=== PATIENT | female | born 1940 | race Caucasian/White ===

== ENCOUNTER 2016-08-01 12:35 | Inpatient (IN) | payer OTHER, MEDICARE ==
[~2016-08-01] VITALS: Ht 180.3 cm; Wt 84.5 kg
[~2016-08-01 12:35] MED LIST: ANASTROZOLE1 MG PO; APIX5T PO; AUGMENTIN 875875 MG PO; DEXAMETHASONE4 MG PO; FLEXERIL10 MG PO; HYDROCODONE BIT1 T22 PO; HYDROMORPHONE HC2 MG PO; LIDODERM 5% PAT1 PAT TOP; LISINOPRIL AND1 TAB PO; NAPROSYN375 MG PO; PROTONIX 40MG T40 MG PO; Robitussin Dm PO; SIMVASTATIN10 MG PO; TAMOXIFEN CITRA10 MG PO; TOPROL XL 50MG50 MG PO; TYLENOL #31 TAB PO
--- NOTE | 2016-08-01 12:53 | NUR ---
76 Y/O FEMALE [facility] FOR EVAL OF SOB. PT ARRIVES ALERT AND ORIENTED X 4, SPEAKING CLEARLY WITH NO DEFICITS NOTED. PT STATES SHE HAS BEEN FEELING SOB FOR WEEKS, STOPPED LASIX A FEW WEEKS AGO AND HAS NOT BEEM FEELING WELL SINCE. PT APPEARS WINDED WITH SPEECH. PLACED ON 2L FOR COMFORT, SAT 94% ON 2L. DENIES PAIN. STATES SHE HAS NOT BEEN EATING WELL LATELY AND DOES NOT HAVE AN APPETITE. DENIES COUGH. RESTRICTED BAND PLACED TO R ARM. PT HAS MANY CONCERNS REGARDING INSURANCE AND BILLING. QUESTIONS ANSWERED AND PT INFORMED REGISTRATION WILL ALSO BE IN. PT PREFERRING TO SPEAK TO MD PRIOR TO WORK UP
--- NOTE | 2016-08-01 13:04 | NUR ---
PT EVALUATED BY DR WAGNER AT THIS TIME.
--- NOTE | 2016-08-01 13:30 | NUR ---
PT PROVIDED WITH WARM BLANKETS PER ORDER
[2016-08-01 13:53] LABS: ABSOLUTE BASOPHIL COUNT 0 /CUMM (0.0-0.2); ABSOLUTE EOSINOPHIL COUNT 0.1 /CUMM (0.0-0.7); ABSOLUTE GRANULOCYTE CT 4.3 /CUMM (1.4-6.5); ABSOLUTE LYMPH COUNT 0.6 /CUMM (1.2-3.4); ABSOLUTE MONOCYTE COUNT 0.4 /CUMM (0.10-0.60); BASOPHIL % 0.1 % (0.0-2.0); EOSINOPHIL % 1.1 % (0-5); HEMATOCRIT 28.5 % (37-47); MEAN CORPUSCULAR HGB CONC 31.2 G/DL (33.0-37.0); MEAN CORPUSCULAR VOLUME 73.6 FL (81.0-99.0); MEAN PLATELET VOLUME 8.1 FL (7.4-10.4); PLATELET COUNT 321 /CUMM (130-400); RED BLOOD CELL CT 3.88 /CUMM (4.20-5.40); WHITE BLOOD CELL COUNT 5.5 /CUMM (4.8-10.8)
--- NOTE | 2016-08-01 14:01 | ED DYSPNEA/ASTHMA COMPLAINT ---
History of Present Illness General Chief Complaint: Dyspnea (COPD, CHF, Other) Stated Complaint: SOB Source: patient, old records, EMS Exam Limitations: no limitations Vital Signs & Intake/Output Vital Signs & Intake/Output Vital Signs Date Time Temp Pulse Resp B/P Pulse O2 O2 Flow FiO2 Ox Delivery Rate 08/01 1448 72 18 162/81 98 Nasal 2.0L Cannula 08/01 1252 90 Room Air 08/01 1241 96.9 74 20 133/59 94 Nasal 2.0L Cannula Allergies Coded Allergies: NO KNOWN ALLERGIES (08/09/15) Reconcile Medications Apixaban (Eliquis) 5 MG TAB 1 TAB PO SEE ADMIN CRITERIA BLOOD THINNER TAKE 2 TAB TWICE DAILY FOR 5 DAYS THAN 1 TAB TWICE DAILY CYCLOBENZAPRINE HCL (Flexeril) 10 MG TAB 1 TAB PO TID MUSCLE RELAXOR Dexamethasone 4 MG TAB 1 TAB PO Q6 LYTIC BONE LESIONS HYDROCODONE/ACETAMINOPHEN (Hydrocodon-Acetaminophen 5-300) 1 TAB TAB 1 TAB PO BID PRN PAIN (Reported) LISINOPRIL/HYDROCHLOROTHIAZIDE (Lisinopril-Hctz 10-12.5 MG Tab) 10 MG-12.5 MG TABLET 1 TAB PO DAILY HTN (Reported) Metoprolol Succ XL (Toprol Xl 50MG Tab) 50 MG TAB 50 MG PO DAILY A-FIB Pantoprazole Sodium (Protonix) 40 MG TAB 40 MG PO DAILY ACID REFLUX Simvastatin (Zocor) 10 MG TABLET 1 TAB PO QPM CHOLESTEROL (Reported) Tamoxifen Citrate 10 MG TAB 1 TAB PO DAILY LYTIC BOME LESIONS Core Measure Meds Pre-Hospital Eliquis Triage Note: 76 Y/O FEMALE BIBA FROM [facility] FOR EVAL OF SOB. PT ARRIVES ALERT AND ORIENTED X 4, SPEAKING CLEARLY WITH NO DEFICITS NOTED. PT STATES SHE HAS BEEN FEELING SOB FOR WEEKS, STOPPED LASIX A FEW WEEKS AGO AND HAS NOT BEEM FEELING WELL SINCE. PT APPEARS WINDED WITH SPEECH. PLACED ON 2L FOR COMFORT, SAT 94% ON 2L. DENIES PAIN. STATES SHE HAS NOT BEEN EATING WELL LATELY AND DOES NOT HAVE AN APPETITE. DENIES COUGH. RESTRICTED BAND PLACED TO R ARM. PT HAS MANY CONCERNS REGARDING INSURANCE AND BILLING. QUESTIONS ANSWERED AND PT INFORMED REGISTRATION WILL ALSO BE IN. PT PREFERRING TO SPEAK TO MD PRIOR TO WORK UP Triage Nurses Notes Reviewed? yes Onset: Last week Duration: week(s):, constant, continues in ED, getting worse Timing: recent history Severity: severe Activities at Onset: activity Prior Episodes/Possible Cause: unknown cause Modifying Factors: Improves With: immobilization, rest. Worsens With: movement. Associated Symptoms: weakness LMP (ages 10-50): post menopausal : No Patient currently breastfeeds: No HPI: 1 month prior to admission Lasix was discontinued for improved leg swelling. 2 weeks prior to admission patient reports increasing shortness of breath with exertion. She denies fever chills nausea vomiting diarrhea abdominal pain chest pain headache dysuria rash bleeding. Past History Travel History Traveled to [place] past 21 day No Medical History Any Pertinent Medical History? 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 No Review of Systems Review of Systems Constitutional: Reports: no symptoms. EENTM: Reports: no symptoms. Respiratory: Reports: see HPI, short of breath. Cardiovascular: Reports: no symptoms. GI: Reports: no symptoms. Genitourinary: Reports: no symptoms. Musculoskeletal: Reports: no symptoms. Skin: Reports: no symptoms. Neurological/Psychological: Reports: no symptoms. Hematologic/Endocrine: Reports: no symptoms. Immunologic/Allergic: Reports: no symptoms. All Other Systems: Reviewed and Negative Physical Exam Physical Exam General Appearance: well developed/nourished, alert, awake, anxious, mild distress, obese Head: atraumatic, normal appearance Eyes: Bilateral: PERRL, EOMI, pale conjunctivae. Ears, Nose, Throat: normal pharynx, normal ENT inspection, moist mucus membranes Neck: normal inspection, supple, full range of motion, no midline tenderness Respiratory: chest non-tender, no respiratory distress, decreased breath sounds (right), rales (right) Cardiovascular: normal peripheral pulses, irregularly irregular Peripheral Pulses: 4+ carotid (R), 4+ carotid (L) Gastrointestinal: normal bowel sounds, soft, non-tender, no organomegaly Extremities: normal inspection, normal capillary refill, normal range of motion, no edema Neurologic/Psych: no motor/sensory deficits, awake, alert, oriented x 3, normal mood/affect, 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 Yes Severe Sepsis Present: No Septic Shock Present: No Progress Differential Diagnosis: AMI, CHF, COPD, pneumonia Plan of Care: Orders Procedure Date/time Status Regular Diet 08/02 D Active Patient Data 08/01 1448 Active EKG 08/01 1417 Active OXYGEN SETUP (GEN) 08/01 1415 Active Saline Lock 08/01 1415 Active Admit to inpatient 08/01 1415 Active Vital Signs 08/01 1415 Active Activity/Ambulation 08/01 1415 Active Code Status 08/01 1415 Active TROPONIN LEVEL 08/01 1306 Complete COMPREHENSIVE METABOLIC PANEL 08/01 1306 Complete CBC WITHOUT DIFFERENTIAL 08/01 1306 Complete B-TYPE NATRIURETIC PEP (BNP) 08/01 1306 Complete Laboratory Tests 08/01/16 1319: Anion Gap 9, Estimated GFR > 60, BUN/Creatinine Ratio 25.0, Glucose 124 H, Calcium 9.9, Total Bilirubin 0.6, AST 21, ALT 25, Alkaline Phosphatase 82, Troponin I 0.01, [id number] Pept 3350 H, Total Protein 6.6, Albumin 3.6, Globulin 3.0, Albumin/Globulin Ratio 1.2, CBC w Diff NO MAN DIFF REQ, RBC 3.88 L, MCV 73.6 L, MCH 23.0 L, RDW 17.0 H, MPV 8.1, Gran % 79.0 H, Lymphocytes % 11.6 L, Monocytes % 8.2, Eosinophils % 1.1, Basophils % 0.1, Absolute Granulocytes 4.3, Absolute Lymphocytes 0.6 L, Absolute Monocytes 0.4, Absolute Eosinophils 0.1, Absolute Basophils 0, PUBS MCHC 31.2 L Diagnostic Imaging: Viewed by Me: Radiology Read. Discussed w/RAD: Radiology Read. CXR Impression: increased right effusion Initial ED EKG: normal axis, normal QRS complex, AFIB, no ST T wave changes Prior EKG: unchanged Rhythm Strip: atrial fibrillation Departure Departure Time of Disposition: 1453 Disposition: STILL A PATIENT Condition: Stable Clinical Impression Primary Impression: Pleural effusion Secondary Impressions: Anemia Qualifiers: Anemia type: unspecified type Qualified Code: D64.9 - Anemia, unspecified Atrial fibrillation with normal ventricular rate Dyspnea on exertion Referrals: Reema PIMENTEL MD (PCP/Family) Departure Forms: Customer Survey General Discharge Information Admission Note Spoke With: BARBARA JARAMILLO MD Documentation of Exam: Documentation of any treatments & extenuating circumstances including Concerns Regarding Discharge (functional status, medication knowledge or non-compliance, living conditions, etc.) that warrant an admission rather than observation: Supplemental oxygen IV diuresis medication adjustment serial lab exam hematology evaluation continuing care discharge planning Critical Care Note Critical Care Note Critical Care Time: non-applicable
--- NOTE | 2016-08-01 14:13 | RADIOLOGY REPORT ---
EXAMINATION: XR PORTABLE CHEST CLINICAL INFORMATION: Shortness of breath, dyspnea on exertion COMPARISON: CT 06/19/2016 TECHNIQUE: Portable view of the chest was obtained. FINDINGS: There is a redemonstrated moderate sized right pleural effusion with adjacent basal opacification. Effusion is suspected to the increased in volume from 06/19/2016, given differences in technique. No definite left lung consolidation. No evidence of pneumothorax or overt pulmonary edema. The cardiac silhouette is mildly prominent. A hiatal hernia is suspected. Calcification is present at the aortic arch. No acute osseous findings are seen. IMPRESSION: Moderate right pleural effusion, likely increased from prior, with adjacent basilar opacification suggestive of atelectasis. Hiatal hernia.
--- NOTE | 2016-08-01 14:53 | NUR ---
PT ASKING TO EAT. DIET ORDER IN. TRAY ORDERED THROUGH [facility]
--- NOTE | 2016-08-01 14:54 | NUR ---
PT AWARE THAT SHE IS BEING ADMITTED , MEDICATED WITH LASIX 40 MG IV PER ORDER, COMMODE PLACED AT BEDSIDE .
--- NOTE | 2016-08-01 15:51 | History & Physical ---
TAINA ALONSO 08/01/16 1551: General Information and HPI MD Statement: I have seen and personally examined MARCIAL KERN and documented this H&P. The patient is a 76 year old F who presented with a patient stated chief complaint of Source of Information: patient, old records Exam Limitations: no limitations History of Present Illness: Ms Kern is a 76 yr old woman was known to be in her usual state of health until 2 wks ago. She has a pmh of Breast Ca (ER+; Her2 neg; Stage 4 w/ bony mets , s/p RCT s/p mastectomy dx'ed 2010 on ER antagoinis-Fulvestrant), right sided pleural effusion(chronic), PE(on NOAC dx'ed 08/2015), paroxysmal Afib, previous RT for vertebral body mets. She was brought from the Cancer center after she had worsening shortness of breath this pm. As per the pt, she was treated w/ Furosemide for pedal edema, which was discontinued 4 wks ago. After 2 wks, she started developing shortness of breath while doing her daily chores, progressed to a point where she was short of breath even at rest. No CP, palpitations, cough, sick contacts. No lightheadedness. No unintentional weight loss or weight gain, no tremors. Sees Dr. Marie and Dr. Ford. 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 Psychosocial History Who Do You Live With? self Services at Home: None Primary Language: Kazakh Functional Ability ADLs Independent: dressing, eating, toileting, bathing. Ambulation: independent IADLs Independent: shopping, housework, finances, food prep, telephone, transportation , medication admin. Review of Systems Review of Systems Constitutional: Reports: malaise, weakness. Denies: chills, fever. EENTM: Denies: blurred vision. Cardiovascular: Denies: chest pain, edema. Respiratory: Reports: orthopnea, short of breath. Denies: cough, hemoptysis, sputum production. GI: Denies: abdominal pain, melena. Genitourinary: Denies: frequency. Musculoskeletal: Denies: joint pain. Skin: Denies: change in skin color, erythema. Neurological/Psychological: Denies: anxiety. Hematologic/Endocrine: Denies: bleeding. Immunologic/Allergic: Denies: lymphadenopathy. Exam & Diagnostic Data Last 24 Hrs of Vital Signs/I&O Vital Signs Date Time Temp Pulse Resp B/P Pulse O2 O2 Flow FiO2 Ox Delivery Rate 08/01 1841 96 Nasal 2.0L Cannula 08/01 1836 99.0 68 20 179/69 96 Nasal 2.0L Cannula 08/01 1751 99.0 68 18 179/69 96 Nasal 1.0L Cannula 08/01 1720 97.1 72 18 158/70 94 Nasal 2.0L Cannula 08/01 1448 72 18 162/81 98 Nasal 2.0L Cannula 08/01 1252 90 Room Air 08/01 1241 96.9 74 20 133/59 94 Nasal 2.0L Cannula Intake & Output 08/01 1600 08/01 0800 08/01 0000 Intake Total Output Total Balance Patient 195 lb Weight Physical Exam General Appearance Alert, Oriented X3, Cooperative, Mild Distress Skin No Rashes, No Breakdown HEENT Atraumatic, PERRLA, EOMI Neck Supple, No JVD, No thryomegaly Lymphatic Cervical nl Cardiovascular Regular Rate, Normal S1, Normal S2, No Murmurs Lungs low air entry b/l no ronchi Abdomen Normal Bowel Sounds, Soft, No Tenderness Neurological Normal Gait, Normal Speech, Strength at 5/5 X4 Ext, Normal Tone, Sensation Intact, Cranial Nerves 3-12 NL, Reflexes 2+ Extremities No Clubbing, No Cyanosis, No Edema Vascular Pulses Symmetrical Last 24 Hrs of Labs/Gavino: Laboratory Tests 08/01/16 1735: Urine Color YEL, Urine Clarity CLEAR, Urine pH 6.0, Ur Specific [place] 1.020, Urine Protein NEG, Urine Ketones NEG, Urine Nitrite NEG, Urine Bilirubin NEG, Urine Urobilinogen 0.2, Ur Leukocyte Esterase TRACE H, Ur Microscopic SEDIMENT EXAMINED, Urine RBC RARE, Urine WBC RARE, Ur Epithelial Cells RARE, Urine Hemoglobin NEG, Urine Glucose NEG 08/01/16 1649: APTT Cancelled 08/01/16 1319: Anion Gap 9, Estimated GFR > 60, BUN/Creatinine Ratio 25.0, Glucose 124 H, Calcium 9.9, Total Bilirubin 0.6, AST 21, ALT 25, Alkaline Phosphatase 82, Troponin I 0.01, [id number] Pept 3350 H, Total Protein 6.6, Albumin 3.6, Globulin 3.0, Albumin/Globulin Ratio 1.2, PT 15.9 H, INR 1.52 H, APTT 32, CBC w Diff NO MAN DIFF REQ, RBC 3.88 L, MCV 73.6 L, MCH 23.0 L, RDW 17.0 H, MPV 8.1, Gran % 79.0 H, Lymphocytes % 11.6 L, Monocytes % 8.2, Eosinophils % 1.1, Basophils % 0.1, Absolute Granulocytes 4.3, Absolute Lymphocytes 0.6 L, Absolute Monocytes 0.4, Absolute Eosinophils 0.1, Absolute Basophils 0, PUBS MCHC 31.2 L Diagnostic Data EKG Results Afib HR 64 CXR Results 1. Pleural effusion R side, w/ increase in size compared to images from 2016. Assessment/Plan Assessment: She is older lady w/ an extensive history of metastatic breast Ca, chronic right sided pleural effusion is being evaluated for worsenign shortness of breath likely due to malignant pleural effusion. At the time of admission, vitals- T 96.9, LA 74, BP 133/59, O2 sat 94 2NC, less than 89%(as per notes at the time of arrival), lung exam revealing diminished breath sound on the left side. Lab findings indicate- WBC 5.5 ( low likely due to Fulvestrant), Hb 8.9( baseline 13.2), Na 145, K 4.3, Bicarbonate 32(likely renal compensation for chronic tachypnea and/or lasix use), BUN 20, Sr Cr 0.8, Slightly elevated pBNP( 3350- Last echocardiogram 2015 showed normal LVEF 55-60% ? diastolic HF), Ca 9.9 ( mets to the bone ? ). Below is the problem list and plan: 1. SOB- likely due to worsening pleural effusion-malignant w/ a contribution from CHF is likely. Intravenous lasix was given in the ED. Gentle diuresis. Repeat CT scan showed an increase in the size of pleural effusion, likely limiting the mobility of the diaphram, giving her the sensation of worsening SOB at this time. Therapeutic thoracentesis could be done 48hrs after last apixaban dose(confirmed w/ the IR). AC w/ heparin in the interim. Pneumonia in the differentials. Follow blood cultures. 2. Paroxysmal Afib- Could contribute to the CHF. May benefit from another echocardiogram. Defer the decision to the allied health teacher. IV heparin for AC. Rate controlled w/ a beta cori. 3. History of PE- CTA reveals no new evidence of PE. Continue IV heparin. 4. Pain management- w/ opiates. Pt to get dexamethasone. To confirm the medication list in the am. 5. Abnormal CT findings- Thyromegaly. R/o Hypothyrodism. Check TSH and free T4. Likely contribute to fluid retention. History of Hurtle Cell Neoplasia ? Hiatal hernia- may consider a surgical evaluation. 6. Hypertension- Continue home medications of lisinopril, HCTZ, and metoprol xl. 6. DVT prophylaxis w/ iv heparin. 7. As Ranked By This Provider Problem List: 1. Dyspnea on exertion 2. Anemia Qualifiers Anemia type: unspecified type Qualified Code: D64.9 - Anemia, unspecified 3. Atrial fibrillation with normal ventricular rate 4. Pleural effusion 5. Atrial fibrillation Core Measures/Miscellaneous Acute Coronary Syndrome ACS Diagnosis: No Cerebrovascular Accident CVA/TIA Diagnosis: No Congestive Heart Failure CHF Diagnosis: No Venous Thromboembolism VTE Risk Factors: Age > 40 VTE Prophylaxis Ordered Inpt: [facility] d/t: No contraindications No VTE Pharm Prophylaxis d/t: No contraindications VTE Diagnosis: No VTE Type: NONE VTE Confirmed by (Test): NONE Severe Sepsis Severe Sepsis Present: No Septic Shock Septic Shock Present: No Miscellaneous Documentation Attending Case Discussed With: BARBARA JARAMILLO MD Primary Care Physician: Reema PIMENTEL MD Patient sees these Specialists dr. marie Level of Patient Care: General Medicine RADHA ANDRE MD 08/01/16 1713: Resident Review Statement Resident Statement: examined this patient, discussed with nutrition intern, agreed with nutrition intern, discussed with family, reviewed EMR data (avail), discussed with nursing , discussed with case mgmt, reviewed images, amended to note Other Findings: 76 yo female with pmh of metastatic breast cancer (to bone, lung) s/p palliative Rx and dexamethasone (s/p Rt. mastectomy 2010, Her2 -), hx of A.fib with PE on eliquis following Dr. Marie was brought from [facility] due to acute SOB on exertion. T. She was desaturating < 88% on RA in [facility]. Her po lasix 40mg daily was held about 1 month ago, and SOB worsened about 2 weeks ago. She had known moderate size Rt. pleural effusion from . Today's CXR showed increasing Rt. pleural effusion with atelectasis. Of note, She stopped taking tamoxifen and now she's on IM Faslodex monthly. 1. Worsening dyspnea: Likely due to malignant Rt. sided pleural effusion vs. Eliquis failure. CTA will be obtained to rule out new PE while on eliquis. If PE is negative, will stop po eliquis and start IV heparin for anticoagulation after 12 hours of last Eliquis dose (10pm). After holding eliquis 48 hours, she'll get a diagnostic & therapeutic thoracentesis and/or PleurX catheter on Saturday. Oncology and pulmonary consult will be followed. Check ambulatory oxygen saturation. 2. A.fib: rate is controlled, continue b-cori and anticoagulation with IV heparin. 3. Metastatic breast cancer: confirm dexamethasone dose and most updated staging with Dr. Marie. DVT ppx: IV heparin, pain pathway Code: full code, goals of care need to be discussed later. BARBARA JARAMILLO MD 08/01/168: General Information and HPI Allergies/Medications Home Med list Apixaban (Eliquis) 5 MG TAB 1 TAB PO SEE ADMIN CRITERIA BLOOD THINNER TAKE 2 TAB TWICE DAILY FOR 5 DAYS THAN 1 TAB TWICE DAILY Metoprolol Succ XL (Toprol XL) 100 MG TAB.ER.24H 1 TAB PO DAILY A.FIB Pantoprazole Sodium (Protonix) 40 MG TAB 40 MG PO DAILY ACID REFLUX Potassium Chloride 10 MEQ TAB.ER.PRT 1 TAB PO DAILY SUPPLEMENT (Reported) Simvastatin (Zocor) 10 MG TABLET 1 TAB PO QPM CHOLESTEROL (Reported) Attending MD Review Statement Attending Statement Attending MD Statement: examined this patient, discuss w/resident/PA/INFORMATION WRITER, agreed w/resident/PA/INFORMATION WRITER, reviewed EMR data (avail), reviewed images, amended to note Attending Assessment/Plan: The patient is a 76 yo female with h/o stage IV breast cancer (known bone metastases), h/o paroxysmal atrial fibrillation, and h/o pulmonary embolism (on Eliquis) who presented with c/o 2 week h/o progressive dyspnea. On CXR she was noted to have a large right pleural effusion (significantly enlarged from prior) . She had been on prior furosemide therapy for lower extremity edema and this had been discontinued 4 weeks ago as edema had resolved. She denied any chest pain, palpitations, fever, chills, cough, or other symptoms. She is S/P XRT for bone metastases and had been on Tamoxifen therapy (?may have been discontinued due to PE). Physical Exam: VS: T 96.9, P 74, R 20, BP 133/59, PO 90% RA at rest and 94% on 2L nasal HEENT: eyes- PERRLA, EOMI sheila- moist mucosa w/o lesions Neck: no adenopathy, JVD or bruits Chest: absent breath sounds right lower lung field, otherwise clear Cor: RRR, nl S1, S2 w/o murm Abd: BS+, soft, non-tender, - masses or HSM Ext: no edema, pulses 2+ Neuro: alert & oriented x 3, non-focal Labs/Tests: as above Impression/Plan: #Acute Dyspnea- due to significant increase in size of right pleural effusion. Plan: Admit to medical floor- nasal oxygen with close respiratory monitoring. Treat effusion as below. #Right Pleural Effusion- differential diagnosis includes CHF (no clinical CHF and normal LVEF in past), Malignant Effusion, or Hemothorax (on chronic Eliquis therapy). Needs therapeutic and diagnostic thoracentesis, however is on Eliquis. CTPA negative for recurrent PE. Does have small stable lung nodules. Plan; Pulmonary Consult- Dr. Gore (done). Stop Eliquis x 48 hours and begin IV heparin anticipating IR thoracentesis. Will do therapeutic and diagnostic tap. Gentle diuresis (IV Lasix given in ED) #Paroxysmal Atrial Fibrillation- in NSR at present. No palpitations. Plan: Continue anticoagulation (heparin while off Eliquis) and Metoprolol. #HTN- BP is stable. Plan: Continue Lisinopril/HCTZ. #GERD- on Pantoprazole. Plan: Use omeprazole in hospital. #HL- on Simvastatin. Plan: Continue Simvastatin. #Stage IV Breast Cancer- with known bone metastases. On dexamethasone. Plan: Continue Dexamethasone.
--- NOTE | 2016-08-01 16:31 | NUR ---
PT VOIDED 1000 CC CLEAR YELLOW URINE AT THIS TIME
--- NOTE | 2016-08-01 17:21 | NUR ---
PT AWAKE AND ALERT AT THIS TIME, MEDICATED WITH LIPITOR PER ORDER. PT AWARE THAT WE ARE WAITING ON BED
[2016-08-01 17:24] LABS: PT 15.9 SEC (9.4-12.5); PTT 32 SEC (25-37)
--- NOTE | 2016-08-01 17:37 | NUR ---
URINE SENT TO LAB , PT TO CT SCAN AT THIS TIME
--- NOTE | 2016-08-01 17:53 | NUR ---
PT RETURNED FROM CT SCAN, O2 SAT ON 2L VIA NC NOTED TO BE 100 %, O2 DECREASED TO 1L NC , WILL CONTINUE TO MONITOR. PT UP TO COMMODE
--- NOTE | 2016-08-01 18:25 | CT SCAN REPORT ---
EXAMINATION: CT ANGIOGRAM OF THE CHEST WITH AND WITHOUT CONTRAST (CT PULMONARY ANGIOGRAM FOR PE) CLINICAL INFORMATION: Acute exacerbation of shortness of breath. History of metastatic lung cancer. COMPARISON: CT chest with contrast 06/19/2016. TECHNIQUE: Prior to contrast administration, noncontrast localization images were obtained. Subsequently, multidetector volumetric imaging was performed from the thoracic inlet to below the diaphragms following the administration of 95 mL Optiray 350 intravenous contrast. No contrast reaction reported. Sagittal, coronal, and MIP oblique sagittal reformatted images were obtained on the CT workstation, uploaded to PACS, and reviewed. Total exam dose-length product 530 mGy-cm. FINDINGS: QUALITY OF STUDY/CONTRAST BOLUS: Adequate contrast opacification of the pulmonary arterial vasculature. PULMONARY ARTERIES: No evidence of deep venous thrombosis to the level of the segmental pulmonary arteries. No definite emboli within the subsegmental pulmonary arteries. However, evaluation of the subsegmental pulmonary arteries is limited secondary to dependent bibasilar atelectasis as well as a large right-sided pleural effusion with overlying right basilar compressive atelectasis. There are no large central pulmonary emboli. THORACIC AORTA: No evidence of aneurysm or dissection of the thoracic aorta. There are scattered coronary artery calcifications. Scattered atherosclerosis of the thoracic aorta is also noted. LUNG: Evaluation of the lung parenchyma demonstrates interval increased right basilar compressive atelectasis secondary to interval enlargement of a previously identified right-sided pleural effusion which is now large in volume. There is a new wedge-shaped opacity within the right middle lobe which could reflect subsegmental atelectasis. The left lung is grossly clear. The central airways are patent, without endobronchial obstructing lesions. PLEURA: Interval enlargement of a previously identified moderate right-sided pleural effusion, now large in volume with associated right basilar compressive atelectasis. A triangular wedge-shaped opacity within the right middle lobe could also reflect subsegmental atelectasis although superimposed consolidation secondary to infection cannot be excluded. No pneumothoraces. MEDIASTINUM: Redemonstrated is a significantly enlarged and heterogeneous left thyroid lobe, corresponding to the patient's previously visualized thyroid goiter. Normal heart size, with small volume pericardial effusion. Moderate hiatal hernia. CHEST WALL/AXILLA: No axillary or internal mammary lymphadenopathy. OSSEOUS STRUCTURES: No acute osseous abnormality. Kyphosis of the thoracic spine. Patchy sclerosis of the midthoracic vertebral body, grossly unchanged relative to the prior exam. No new vertebral compression deformities. UPPER ABDOMEN: No acute findings within the upper abdomen. No reflux of contrast into the hepatic veins to suggest elevated right heart pressures. IMPRESSION: 1. Adequate contrast opacification of the pulmonary arterial vasculature, without evidence of pulmonary embolism to the level of the segmental pulmonary arteries. Evaluation of the subsegmental pulmonary arteries is limited given interval enlargement of a previously identified right-sided pleural effusion. 2. As noted above, there has been interval enlargement of a previously identified moderate right-sided pleural effusion, now large in volume. There is overlying right basilar compressive atelectasis. A triangular wedge-shaped opacity within the right middle lobe could reflect subsegmental atelectasis although underlying consolidation secondary to superimposed infection not be excluded in the appropriate clinical setting. 3. Enlarged and heterogeneous left thyroid lobe, corresponding to the patient's previously visualized thyroid goiter. VTE: Negative for pulmonary embolism.
[2016-08-01 18:36] VITALS: BP 179/69
--- NOTE | 2016-08-01 18:37 | NUR ---
BED ASSIGNMENT 179-01
--- NOTE | 2016-08-01 18:45 | Cons- Pulmonary ---
General Information and HPI Consulting Request Date of Consult: 08/01/16 Requested By: med team History of Present Illness: This is a 76-year-old lady with history of stage IV breast cancer with multiple bone metastases, chronic right-sided pleural effusion, previous history of pulmonary embolism on eloquis twice a day, came in from the cancer Center today because she's been increasingly short of breath. With minimal exertion. She's been short of breath. Recently she had been on Lasix which was discontinued as she was not having any fluid overload. She says that shortness of breath has been for 4 days to 5 days now, which is worse. In the emergency room her O2 sat was less than 89% on room air and was started on 2 L nasal cannula. She denied any pain, nausea, vomiting, diarrhea. No fever or chills. She has had previous history of pulmonary embolism for which she was treated with eloquis and she says she is quite compliant with the medication. Review of symptoms is negative for any major leg swelling, nausea, vomiting, diarrhea. She had previous history of right-sided breast cancer status post retreatment chemotherapy, mastectomy and radiation in 2010. Subsequently was noted to have metastatic disease to multiple bones and she has been receiving chemotherapy lately. She has hypertension, hyperlipidemia, previous thyroid nodule. And bilateral pulmonary embolism, which was diagnosed in the August 2015. She also has atrial fibrillation and the rate has been controlled. SIGNIFICANT DATA Previous echocardiogram done in August 2015 showed normal LV function. Pulmonary hypertension was not noted that time. Patient had a CT scan of the chest in November 2015 which showed no evidence of recurrent pulmonary embolism. She had right pleural effusion which is relatively hyperdense and contains a component of hemorrhage which seems to have increased in size. She had triple-vessel disease. She also has a large nodular left thyroid gland and a small lung nodule. She also has significant hiatal hernia with our she is metastasis. 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 Chest x-ray done today showed moderate right pleural effusion, likely seems to have increased with hiatal hernia. CT scan of the chest done today revealed no evidence of pulmonary embolism. Significantly, and large right pleural effusion with subsegmental atelectasis with significantly enlarged thyroid goiter. Constitutional: Reports: no symptoms. EENTM: Reports: no symptoms. Respiratory: Reports: see HPI, short of breath. Cardiovascular: Reports: no symptoms. GI: Reports: no symptoms. Genitourinary: Reports: no symptoms. Musculoskeletal: Reports: no symptoms. Skin: Reports: no symptoms. Neurological/Psychological: Reports: no symptoms. Hematologic/Endocrine: Reports: no symptoms. Immunologic/Allergic: Reports: no symptoms. All Other Systems: Reviewed and Negative Allergies/Medications Allergies: Coded Allergies: NO KNOWN ALLERGIES (08/09/15) Home Med List: Apixaban (Eliquis) 5 MG TAB 1 TAB PO SEE ADMIN CRITERIA BLOOD THINNER TAKE 2 TAB TWICE DAILY FOR 5 DAYS THAN 1 TAB TWICE DAILY CYCLOBENZAPRINE HCL (Flexeril) 10 MG TAB 1 TAB PO TID MUSCLE RELAXOR Dexamethasone 4 MG TAB 1 TAB PO Q6 LYTIC BONE LESIONS HYDROCODONE/ACETAMINOPHEN (Hydrocodon-Acetaminophen 5-300) 1 TAB TAB 1 TAB PO BID PRN PAIN (Reported) LISINOPRIL/HYDROCHLOROTHIAZIDE (Lisinopril-Hctz 10-12.5 MG Tab) 10 MG-12.5 MG TABLET 1 TAB PO DAILY HTN (Reported) Metoprolol Succ XL (Toprol Xl 50MG Tab) 50 MG TAB 50 MG PO DAILY A-FIB Pantoprazole Sodium (Protonix) 40 MG TAB 40 MG PO DAILY ACID REFLUX Simvastatin (Zocor) 10 MG TABLET 1 TAB PO QPM CHOLESTEROL (Reported) Review of Systems Review of Systems Constitutional: Reports: see HPI. 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 self Services at Home: None Primary Language: Niuean Exam & Diagnostic Data Last 24 Hrs of Vital Signs/I&O Vital Signs Date Time Temp Pulse Resp B/P Pulse O2 O2 Flow FiO2 Ox Delivery Rate 08/01 1836 99.0 68 20 179/69 96 Nasal 2.0L Cannula 08/01 1751 99.0 68 18 179/69 96 Nasal 1.0L Cannula 08/01 1720 97.1 72 18 158/70 94 Nasal 2.0L Cannula 08/01 1448 72 18 162/81 98 Nasal 2.0L Cannula 08/01 1252 90 Room Air 08/01 1241 96.9 74 20 133/59 94 Nasal 2.0L Cannula Intake & Output 08/01 1600 08/01 0800 08/01 0000 Intake Total Output Total Balance Patient 195 lb Weight Last 48 Hrs of Labs/Gavino: Laboratory Tests 08/01/16 1735: Urine Color YEL, Urine Clarity CLEAR, Urine pH 6.0, Ur Specific [place] 1.020, Urine Protein NEG, Urine Ketones NEG, Urine Nitrite NEG, Urine Bilirubin NEG, Urine Urobilinogen 0.2, Ur Leukocyte Esterase TRACE H, Ur Microscopic SEDIMENT EXAMINED, Urine RBC RARE, Urine WBC RARE, Ur Epithelial Cells RARE, Urine Hemoglobin NEG, Urine Glucose NEG 08/01/16 1649: APTT Cancelled 08/01/16 1319: Anion Gap 9, Estimated GFR > 60, BUN/Creatinine Ratio 25.0, Glucose 124 H, Calcium 9.9, Total Bilirubin 0.6, AST 21, ALT 25, Alkaline Phosphatase 82, Troponin I 0.01, Pad-L-Vgzfwgqzafp Pept 3350 H, Total Protein 6.6, Albumin 3.6, Globulin 3.0, Albumin/Globulin Ratio 1.2, PT 15.9 H, INR 1.52 H, APTT 32, CBC w Diff NO MAN DIFF REQ, RBC 3.88 L, MCV 73.6 L, MCH 23.0 L, RDW 17.0 H, MPV 8.1, Gran % 79.0 H, Lymphocytes % 11.6 L, Monocytes % 8.2, Eosinophils % 1.1, Basophils % 0.1, Absolute Granulocytes 4.3, Absolute Lymphocytes 0.6 L, Absolute Monocytes 0.4, Absolute Eosinophils 0.1, Absolute Basophils 0, PUBS MCHC 31.2 L Assessment/Plan Impression/Plan: Physical Exam General Appearance: well developed/nourished, alert, awake, anxious, mild distress, obese Head: atraumatic, normal appearance Eyes: Bilateral: PERRL, EOMI, pale conjunctivae. Ears, Nose, Throat: normal pharynx, normal ENT inspection, moist mucus membranes Neck: normal inspection, supple, full range of motion, no midline tenderness Respiratory: chest non-tender, no respiratory distress, decreased breath sounds (right), rales (right) Cardiovascular: normal peripheral pulses, irregularly irregular Peripheral Pulses: 4+ carotid (R), 4+ carotid (L) Gastrointestinal: normal bowel sounds, soft, non-tender, no organomegaly Extremities: normal inspection, normal capillary refill, normal range of motion, no edema Neurologic/Psych: no motor/sensory deficits, awake, alert, oriented x 3, normal mood/affect, manager mortgage II-XII nml as tested Skin: intact, normal color Lymphatic: no anterior cervical esteban IMPRESSION This is a lady with the hypertension, hyperlipidemia, paroxysmal atrial fibrillation, previous history of pulmonary embolism with no new pulmonary embolism at this time (neg cta) who is on eloquis, 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 Her issues include * Enlarging right pleural effusion which is chronic and this seems to be getting worse in the recent past with hyperdense material, malignant effusion needs to be ruled out. Unlikely empyema etc. Pt may have had a component of hemorraghic effusion before. Most of the shortness of breath appears to be related to the worsening effusion * Significant history of pulmonary embolism in the past now on eloquis with no active PE. Patient is on eloquis for atrial fibrillation as well as for venous thromboembolism rx and prophylaxix * Paroxymsmal atrial fibrillation, hypertension, ischemic heart on appropriate medications. Recently, her Lasix has been held with the no clinical evidence suggestive of acute pulmonary edema. However, her proBNP is elevated she may have a component of acute on chronic diastolic heart failure. * Breast cancer, with bone (spine aswell) on chemotherapy and she is on chronic steroid therapy (per cmr). This needs to be confirmed with the oncology * Hypertension, hyperlipidemia, previous GERD, stable. 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 * Once she is off eloquis for two days we will obtain a large volume thoracentesis, and if she does have malignant effusion, then she might benefit from a Pleurx catheter. * Gentle diuresis, do not give any further Lasix today or in am as she did receive intravenous contrast. * Follow BUN and creatinine. * Keep the head of bed elevated as she has a pretty large hiatal hernia. * Continue her proton pump inhibitor. * Continue her blood pressure medications. Confirm with Subhash Eubanks MD about her outpatient dexamethasone dose. We will follow closely Consult Acknowledgment - Thank you for your consult request.
[2016-08-01 21:00] VITALS: BP 152/72
[2016-08-02 00:21] VITALS: BP 116/54
[2016-08-02 04:14] LABS: ABSOLUTE BASOPHIL COUNT 0 /CUMM (0.0-0.2); ABSOLUTE EOSINOPHIL COUNT 0.2 /CUMM (0.0-0.7); ABSOLUTE GRANULOCYTE CT 4.4 /CUMM (1.4-6.5); ABSOLUTE LYMPH COUNT 1.3 /CUMM (1.2-3.4); ABSOLUTE MONOCYTE COUNT 0.8 /CUMM (0.10-0.60); BASOPHIL % 0 % (0.0-2.0); EOSINOPHIL % 3.6 % (0-5); GRANULOCYTE % 64.8 % (42.2-75.2); HEMATOCRIT 28.7 % (37-47); MEAN CORPUSCULAR HGB 22.5 PG (27.0-31.0); MEAN CORPUSCULAR HGB CONC 30.7 G/DL (33.0-37.0); MEAN CORPUSCULAR VOLUME 73.2 FL (81.0-99.0); MEAN PLATELET VOLUME 8.1 FL (7.4-10.4); PLATELET COUNT 296 /CUMM (130-400); RBC DISTRIBUTION WIDTH 16.7 % (11.5-14.5); RED BLOOD CELL CT 3.92 /CUMM (4.20-5.40); WHITE BLOOD CELL COUNT 6.8 /CUMM (4.8-10.8)
[2016-08-02 04:27] LABS: PTT 111 SEC (25-37)
--- NOTE | 2016-08-02 06:32 | Cons- Oncology ---
General Information and HPI Consulting Request Date of Consult: 08/02/16 Requested By: LEA KRISHNA,MILTON Jackson History of Present Illness: 76-year-old woman well known to me with metastatic breast cancer currently being treated with Faslodex. Patient's course has been complicated by pulmonary emboli, atrial fibrillation and prior iron deficiency. The patient presented to my office yesterday with 1 week of significant dyspnea on exertion. She denied chest pain or hemoptysis or leg swelling. She has been on oral anticoagulation. She was referred immediately to the emergency room. This morning she says she is somewhat more comfortable Allergies/Medications Allergies: Coded Allergies: NO KNOWN ALLERGIES (08/09/15) Home Med List: Apixaban (Eliquis) 5 MG TAB 1 TAB PO SEE ADMIN CRITERIA BLOOD THINNER TAKE 2 TAB TWICE DAILY FOR 5 DAYS THAN 1 TAB TWICE DAILY CYCLOBENZAPRINE HCL (Flexeril) 10 MG TAB 1 TAB PO TID MUSCLE RELAXOR Dexamethasone 4 MG TAB 1 TAB PO Q6 LYTIC BONE LESIONS HYDROCODONE/ACETAMINOPHEN (Hydrocodon-Acetaminophen 5-300) 1 TAB TAB 1 TAB PO BID PRN PAIN (Reported) LISINOPRIL/HYDROCHLOROTHIAZIDE (Lisinopril-Hctz 10-12.5 MG Tab) 10 MG-12.5 MG TABLET 1 TAB PO DAILY HTN (Reported) Metoprolol Succ XL (Toprol Xl 50MG Tab) 50 MG TAB 50 MG PO DAILY A-FIB Pantoprazole Sodium (Protonix) 40 MG TAB 40 MG PO DAILY ACID REFLUX Simvastatin (Zocor) 10 MG TABLET 1 TAB PO QPM CHOLESTEROL (Reported) Current Medications: Current Medications Sig/Dhara Start time Last Medication Dose Route Stop Time Status Admin Acetaminophen 650 MG Q6P PRN 08/01 1700 AC PO Acetaminophen/ 1 TAB Q6P PRN 08/01 1700 AC Hydrocodone Bitart PO Atorvastatin Calcium 10 MG 1700 08/02 1700 AC PO Atorvastatin Calcium 10 MG 1700 08/01 1700 DC 08/01 PO 08/01 2359 1711 Furosemide 0 .STK-MED ONE 08/02 1451 DC IV Furosemide 40 MG DAILY 08/02 1000 AC PO Furosemide 40 MG ONCE ONE 08/01 1430 DC 08/01 IV 08/01 1431 1454 Heparin Sodium 25,000 UNIT Q24H 08/01 2200 AC 08/01 (Porcine) IV 2156 Sodium Chloride 500 ML Metoprolol Succinate 50 MG DAILY 08/02 1000 AC PO Morphine Sulfate 2 MG Q4P PRN 08/01 1700 AC IV Omeprazole 40 MG DAILY AC 08/02 0700 AC PO Review of Systems Review of Systems: Patient denied headaches or dizziness. Patient denied nausea vomiting of blood loss. She denied dysuria hematuria. 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 Psychosocial History Where Do You Live? Home Who Do You Live With? self Services at Home: None Primary Language: Mozambican Smoking Status: Former Smoker Functional Ability ADLs Independent: dressing, eating, toileting, bathing. Ambulation: independent IADLs Independent: shopping, housework, finances, food prep, telephone, transportation , medication admin. Exam & Diagnostic Data Vital Signs and I&O Vital Signs Date Time Temp Pulse Resp B/P Pulse O2 O2 Flow FiO2 Ox Delivery Rate 08/02 0021 98.9 60 12 116/54 98 Room Air 08/02 0000 96 Nasal 2.0L Cannula 08/01 2100 98.9 72 20 152/72 94 Nasal 2.0L Cannula 08/01 1841 96 Nasal 2.0L Cannula 08/01 1836 99.0 68 20 179/69 96 Nasal 2.0L Cannula 08/01 1751 99.0 68 18 179/69 96 Nasal 1.0L Cannula 08/01 1720 97.1 72 18 158/70 94 Nasal 2.0L Cannula 08/01 1448 72 18 162/81 98 Nasal 2.0L Cannula 08/01 1252 90 Room Air 08/01 1241 96.9 74 20 133/59 94 Nasal 2.0L Cannula Intake & Output 08/02 0800 08/02 0000 08/01 1600 Intake Total 266 Output Total 3100 Balance -2834 Intake, IV 26 Intake, Oral 240 Output, Urine 3100 Patient 186 lb 195 lb Weight Gen.: in NAD ENT: Sclera anicteric Chest: Normal respiratory effort, decreased breath sounds right hemithorax Cor: Irregular, no extra sounds Abdomen: Soft, bowel sounds present, no tenderness, no rebound Extremities: Without clubbing, cyanosis, or edema Neurology: Alert and oriented 3, no gross deficit Skin: No rashes Last 48 Hours of Lab Results: Laboratory Tests 08/02 08/01 0400 1735 Chemistry Sodium (137 - 145 mmol/L) 145 Potassium (3.5 - 5.1 mmol/L) 3.9 Chloride (98 - 107 mmol/L) 103 Carbon Dioxide (22 - 30 mmol/L) 35 H Anion Gap (5 - 16) 8 BUN (7 - 17 mg/dL) 17 Creatinine (0.5 - 1.0 mg/dL) 0.8 Estimated GFR (>60 ml/min) > 60 BUN/Creatinine Ratio (7 - 25 %) 21.3 Coagulation APTT (25 - 37 SEC) 111 *H Hematology CBC w Diff NO MAN DIFF REQ WBC (4.8 - 10.8 /CUMM) 6.8 RBC (4.20 - 5.40 /CUMM) 3.92 L Hgb (12.0 - 16.0 G/DL) 8.8 L Hct (37 - 47 %) 28.7 L MCV (81.0 - 99.0 FL) 73.2 L MCH (27.0 - 31.0 PG) 22.5 L RDW (11.5 - 14.5 %) 16.7 H Plt Count (130 - 400 /CUMM) 296 MPV (7.4 - 10.4 FL) 8.1 Gran % (42.2 - 75.2 %) 64.8 Lymphocytes % (20.5 - 51.1 %) 19.5 L Monocytes % (1.7 - 9.3 %) 12.1 H Eosinophils % (0 - 5 %) 3.6 Basophils % (0.0 - 2.0 %) 0 L Absolute Granulocytes (1.4 - 6.5 /CUMM) 4.4 Absolute Lymphocytes (1.2 - 3.4 /CUMM) 1.3 Absolute Monocytes (0.10 - 0.60 /CUMM) 0.8 H Absolute Eosinophils (0.0 - 0.7 /CUMM) 0.2 Absolute Basophils (0.0 - 0.2 /CUMM) 0 PUBS MCHC (33.0 - 37.0 G/DL) 30.7 L Urines Urine Color (YEL,AMB,STR) YEL Urine Clarity (CLEAR) CLEAR Urine pH (5.0 - 8.0) 6.0 Ur Specific [place] (1.001 - 1.035) 1.020 Urine Protein (NEG,<30 MG/DL) NEG Urine Ketones (NEG) NEG Urine Nitrite (NEG) NEG Urine Bilirubin (NEG) NEG Urine Urobilinogen (0.1 - 1.0 EU/dl) 0.2 Ur Leukocyte Esterase (NEG) TRACE H Ur Microscopic SEDIMENT EXAMINED Urine RBC (0 - 5 /HPF) RARE Urine WBC (0 - 2 /HPF) RARE Ur Epithelial Cells (NONE,FEW) RARE Urine Hemoglobin (NEG) NEG Urine Glucose (N MG/DL) NEG 08/01 08/01 1649 1319 Chemistry Sodium (137 - 145 mmol/L) 145 Potassium (3.5 - 5.1 mmol/L) 4.3 Chloride (98 - 107 mmol/L) 104 Carbon Dioxide (22 - 30 mmol/L) 32 H Anion Gap (5 - 16) 9 BUN (7 - 17 mg/dL) 20 H Creatinine (0.5 - 1.0 mg/dL) 0.8 Estimated GFR (>60 ml/min) > 60 BUN/Creatinine Ratio (7 - 25 %) 25.0 Glucose (65 - 99 mg/dL) 124 H Calcium (8.4 - 10.2 mg/dL) 9.9 Total Bilirubin (0.2 - 1.3 mg/dL) 0.6 AST (14 - 36 U/L) 21 ALT (9 - 52 U/L) 25 Alkaline Phosphatase (<127 U/L) 82 Troponin I (< 0.11 ng/ml) 0.01 Lum-S-Pufnfrteyxt Pept (<125 pg/mL) 3350 H Total Protein (6.3 - 8.2 g/dL) 6.6 Albumin (3.5 - 5.0 g/dL) 3.6 Globulin (1.9 - 4.2 gm/dL) 3.0 Albumin/Globulin Ratio (1.1 - 2.2 %) 1.2 Coagulation PT (9.4 - 12.5 SEC) 15.9 H INR (0.90 - 1.19) 1.52 H APTT (25 - 37 SEC) Cancelled 32 Hematology CBC w Diff NO MAN DIFF REQ WBC (4.8 - 10.8 /CUMM) 5.5 RBC (4.20 - 5.40 /CUMM) 3.88 L Hgb (12.0 - 16.0 G/DL) 8.9 L Hct (37 - 47 %) 28.5 L MCV (81.0 - 99.0 FL) 73.6 L MCH (27.0 - 31.0 PG) 23.0 L RDW (11.5 - 14.5 %) 17.0 H Plt Count (130 - 400 /CUMM) 321 MPV (7.4 - 10.4 FL) 8.1 Gran % (42.2 - 75.2 %) 79.0 H Lymphocytes % (20.5 - 51.1 %) 11.6 L Monocytes % (1.7 - 9.3 %) 8.2 Eosinophils % (0 - 5 %) 1.1 Basophils % (0.0 - 2.0 %) 0.1 Absolute Granulocytes (1.4 - 6.5 /CUMM) 4.3 Absolute Lymphocytes (1.2 - 3.4 /CUMM) 0.6 L Absolute Monocytes (0.10 - 0.60 /CUMM) 0.4 Absolute Eosinophils (0.0 - 0.7 /CUMM) 0.1 Absolute Basophils (0.0 - 0.2 /CUMM) 0 PUBS MCHC (33.0 - 37.0 G/DL) 31.2 L Imaging/Other Studies: CTA-no pulmonary emboli, increased right pleural effusion Assessment/Plan Assessment: 1. Cardiorespiratory status-certainly and enlarging pleural effusion may be the likely etiology of her dyspnea. Patient does have an elevated BNP and she was recently had her Lasix discontinued. Patient is currently on IV heparin off Eliquis. Agree with diagnostic/therapeutic thoracentesis 2. Metastatic breast cancer-recent CAT scan and bone scan suggested stable disease. I need to refer to my office chart for data regarding her Decadron. 3. Microcytic anemia-in the office yesterday a ferritin was drawn and return diagnostic of iron deficiency. Recommend- FeSO4 325 mg PO TID on an empty stomach Discussed in full with the patient Recommendations: .. Consult Acknowledgment - Thank you for your consult request.
[2016-08-02] MEDS ORDERED: TOPROL XL100 M1 PO (07:20)
[2016-08-02] MEDS ORDERED: POTASSIUM CHLO10 ME5 PO (07:22)
[2016-08-02 08:53] VITALS: BP 140/80
--- NOTE | 2016-08-02 09:35 | PN- Housestaff ---
FRANCHESCA KRISHNA,[facility] [place] 08/02/16 0935: Subjective Follow-up For: Lung cancer with metastasis Shortness of breath Tele-Events Since Last Visit: Patient is general medicine hold Subjective: Patient was seen and examined this morning, she reported some shortness of breath on 2 L oxygen nasal cannula with saturation 98% She reported fatigue feeling weak and shaky, she also reported headache 7 or 8 out of 10 bandlike headache associated with nausea and photophobia. The patient mentioned that she is not used to have headache. The patient didn't sleep well last night. Review of Systems Constitutional: Reports: chills, malaise, weakness. Denies: diaphoresis, fever. EENTM: Denies: blurred vision, double vision, hearing changes, nasal congestion. Cardiovascular: Denies: chest pain, palpitations. Respiratory: Reports: short of breath. Denies: cough. Gastrointestinal: Reports: nausea. Denies: abdominal pain, constipation, diarrhea, vomiting. Genitourinary: Denies: dysuria, hematuria. Objective Last 24 Hrs of Vital Signs/I&O Vital Signs Date Time Temp Pulse Resp B/P Pulse O2 O2 Flow FiO2 Ox Delivery Rate 08/02 0937 140/74 08/02 0853 97.9 83 16 140/80 98 Nasal 2.0L Cannula 08/02 0842 98 Nasal 2.0L Cannula 08/02 0021 98.9 60 12 116/54 98 Room Air 08/02 0000 96 Nasal 2.0L Cannula 08/01 2100 98.9 72 20 152/72 94 Nasal 2.0L Cannula 08/01 1841 96 Nasal 2.0L Cannula 08/01 1836 99.0 68 20 179/69 96 Nasal 2.0L Cannula 08/01 1751 99.0 68 18 179/69 96 Nasal 1.0L Cannula 08/01 1720 97.1 72 18 158/70 94 Nasal 2.0L Cannula 08/01 1448 72 18 162/81 98 Nasal 2.0L Cannula Intake & Output 08/02 1600 08/02 0800 08/02 0000 Intake Total 424 266 Output Total 3100 Balance 424 -2834 Intake, IV 184 26 Intake, Oral 240 240 Number 0 Bowel Movements Output, Urine 3100 Patient 84.538 kg Weight Physical Exam General Appearance: Alert, Oriented X3, Cooperative, Mild Distress Skin: No Rashes, No Breakdown, No Significant Lesion HEENT: Atraumatic, PERRLA, EOMI, Mucous Membr. moist/pink Neck: Supple Cardiovascular: Regular Rate, Normal S1, Normal S2, No Murmurs Lungs: decrease air entery bilateral Abdomen: Normal Bowel Sounds, Soft, No Tenderness Neurological: Normal Speech, Strength at 5/5 X4 Ext, Normal Tone, Sensation Intact, Cranial Nerves 3-12 NL, Reflexes 2+ Extremities: No Clubbing, No Cyanosis, No Edema, Normal Pulses Assessment/Plan Assessment: Ms Kern is a 76 years old female with past medical history significant for Breast Ca (ER+; Her2 neg; Stage 4 w/ bony mets, s/p RCT s/p mastectomy 2010 on ER antagoinis-Fulvestrant), previous radiation therapy for vertebral body metastasis, right sided chronic pleural effusion, PE and paroxysmal Afib on Eliqus. Patient presented with chief complaint of sending shortness of breath. Problem list #Shortness of breath #Breast cancer with metastasis #Paroxysmal atrial fibrillation #Previous history of PE #Microcytic anemia CTA 08/01/16 IMPRESSION: 1. Adequate contrast opacification of the pulmonary arterial vasculature, without evidence of pulmonary embolism to the level of the segmental pulmonary arteries. Evaluation of the subsegmental pulmonary arteries is limited given interval enlargement of a previously identified right-sided pleural effusion. 2. As noted above, there has been interval enlargement of a previously identified moderate right-sided pleural effusion, now large in volume. There is overlying right basilar compressive atelectasis. A triangular wedge-shaped opacity within the right middle lobe could reflect subsegmental atelectasis although underlying consolidation secondary to superimposed infection not be excluded in the appropriate clinical setting. 3. Enlarged and heterogeneous left thyroid lobe, corresponding to the patient's previously visualized thyroid goiter. VTE: Negative for pulmonary embolism. #Shortness of breath -Patient presented with history of worsening shortness of breath. Recently she started to have shortness of breath on rest -Could be attributed to the chronic pleural effusion (recent CXR suggest increased pleural effusion from the prior test 06/22) and/or metastatic breast cancer and/or microcytic anemia -Hematology oncology oral consultation was obtained -Pulmonology consultation Herminio Gore MD was obtained -Request was held yesterday and patient started on heparin IV in anticipation for thoracocentesis diagnostic and therapeutic -IR was contacted today and scheduled ultrasound-guided thoracocentesis tomorrow morning, the required lab and microbiology tests were ordered -Patient has history of large hiatal hernia, start proton pump inhibitor and keep elevated bed position -Patient has elevated proBNP -Last echo August 2015 although was limited test, didn't show any abnormal right or left ventricular function, no appreciable pulmonary hypertension, mild left ventricular hypertrophy, ejection fraction 55-60% -CTA negative for PE -Patient has no signs of infection -Consider repeat echo -Regarding Decadron, Dr. Hartmann was contacted and no data in his office for Decadron. The pharmacy was contacted and patient was on Decadron in July and August 2015 -Continue frusemide 40 mg daily by mouth #Paroxysmal atrial fibrillation -Continue metoprolol succinate 100 mg by mouth daily -IV heparin drip #Microcytic anemia -Ferrous sulfate 325 3 times a day milligram daily #Hypertension and hyperlipidemia -Continue atorvastatin 10 mg daily -Metoprolol succinate 100 mg daily -Patient is not taking hydrochlorothiazide and lisinopril anymore -DVT prophylaxis, IV heparin -Diet regular diet -Code full -Consultation pulmonology, heme oncology Problem List: 1. Atrial fibrillation 2. Pleural effusion 3. Anemia 4. Metastatic breast cancer Pain Ratin Pain Location: headache Pain Goal: Pain 4 or less Pain Plan: Acetaminophen 650 for pain scale 1-3 Vicodin 1 tab every 6h for pain scale 4-6 Morphine IV 2 mg every 4 for pain scale 7-10 Tomorrow's Labs & Rationales: CBC CMP Serum LDH and total protein Body fluid total protein Body fluid glucose Body fluid cell count Body fluid LDH Cytology BARBARA JARAMILLO MD 08/02/16 1700: Attending MD Review Statement Attending Statement Attending MD Statement: examined this patient, discuss w/resident/PA/CERTIFIED REGISTERED NURSE PRACTITIONER, agreed w/resident/PA/CERTIFIED REGISTERED NURSE PRACTITIONER, reviewed EMR data (avail), discussed with nursing, discussed with case mgmt, amended to note Attending Assessment/Plan: The patient was seen and discussed with house staff. Had headache earlier today and CT was ordered, however headache improved and patient wished to defer. Will have diagnostic and therapeutic thoracentesis tomorrow.
--- NOTE | 2016-08-02 10:51 | PN- Pulmonary ---
Subjective HPI/Critical Care Issues: Doing better Fast asleep when i saw her ROS could not be obtained Objective Current Medications: Current Medications Sig/Dhara Start time Last Medication Dose Route Stop Time Status Admin Acetaminophen 650 MG Q6P PRN 08/01 1700 AC PO Acetaminophen/ 1 TAB Q6P PRN 08/01 1700 AC Hydrocodone Bitart PO Atorvastatin Calcium 10 MG 1700 08/02 1700 AC PO Atorvastatin Calcium 10 MG 1700 08/01 1700 DC 08/01 PO 08/01 2359 1711 Ferrous Sulfate 325 MG TID 08/02 1000 AC PO Furosemide 0 .STK-MED ONE 08/02 1451 DC IV Furosemide 40 MG DAILY 08/02 1000 AC 08/02 PO 0937 Furosemide 40 MG ONCE ONE 08/01 1430 DC 08/01 IV 08/01 1431 1454 Heparin Sodium 25,000 UNIT Q24H 08/01 2200 AC 08/01 (Porcine) IV 2156 Sodium Chloride 500 ML Metoprolol Succinate 50 MG DAILY 08/02 1000 DC PO Metoprolol Succinate 100 MG DAILY 08/02 1000 AC 08/02 PO 0937 Morphine Sulfate 2 MG Q4P PRN 08/01 1700 AC IV Omeprazole 40 MG DAILY AC 08/02 0700 AC 08/02 PO 0641 Potassium Chloride 10 MEQ DAILY 08/02 1000 AC 08/02 PO 0937 Vital Signs & I&O Last 24 Hrs of Vitals and I&O: Vital Signs Date Time Temp Pulse Resp B/P Pulse O2 O2 Flow FiO2 Ox Delivery Rate 08/02 0937 140/74 08/02 0853 97.9 83 16 140/80 98 Nasal 2.0L Cannula 08/02 0842 98 Nasal 2.0L Cannula 08/02 0021 98.9 60 12 116/54 98 Room Air 08/02 0000 96 Nasal 2.0L Cannula 08/01 2100 98.9 72 20 152/72 94 Nasal 2.0L Cannula 08/01 1841 96 Nasal 2.0L Cannula 08/01 1836 99.0 68 20 179/69 96 Nasal 2.0L Cannula 08/01 1751 99.0 68 18 179/69 96 Nasal 1.0L Cannula 08/01 1720 97.1 72 18 158/70 94 Nasal 2.0L Cannula 08/01 1448 72 18 162/81 98 Nasal 2.0L Cannula 08/01 1252 90 Room Air 08/01 1241 96.9 74 20 133/59 94 Nasal 2.0L Cannula Intake & Output 08/02 1600 08/02 0800 08/02 0000 Intake Total 424 266 Output Total 3100 Balance 424 -2834 Intake, IV 184 26 Intake, Oral 240 240 Number 0 Bowel Movements Output, Urine 3100 Patient 186 lb Weight Laboratory Tests 08/02 08/01 0400 1735 Chemistry Sodium (137 - 145 mmol/L) 145 Potassium (3.5 - 5.1 mmol/L) 3.9 Chloride (98 - 107 mmol/L) 103 Carbon Dioxide (22 - 30 mmol/L) 35 H Anion Gap (5 - 16) 8 BUN (7 - 17 mg/dL) 17 Creatinine (0.5 - 1.0 mg/dL) 0.8 Estimated GFR (>60 ml/min) > 60 BUN/Creatinine Ratio (7 - 25 %) 21.3 Coagulation APTT (25 - 37 SEC) 111 *H Hematology CBC w Diff NO MAN DIFF REQ WBC (4.8 - 10.8 /CUMM) 6.8 RBC (4.20 - 5.40 /CUMM) 3.92 L Hgb (12.0 - 16.0 G/DL) 8.8 L Hct (37 - 47 %) 28.7 L MCV (81.0 - 99.0 FL) 73.2 L MCH (27.0 - 31.0 PG) 22.5 L RDW (11.5 - 14.5 %) 16.7 H Plt Count (130 - 400 /CUMM) 296 MPV (7.4 - 10.4 FL) 8.1 Gran % (42.2 - 75.2 %) 64.8 Lymphocytes % (20.5 - 51.1 %) 19.5 L Monocytes % (1.7 - 9.3 %) 12.1 H Eosinophils % (0 - 5 %) 3.6 Basophils % (0.0 - 2.0 %) 0 L Absolute Granulocytes (1.4 - 6.5 /CUMM) 4.4 Absolute Lymphocytes (1.2 - 3.4 /CUMM) 1.3 Absolute Monocytes (0.10 - 0.60 /CUMM) 0.8 H Absolute Eosinophils (0.0 - 0.7 /CUMM) 0.2 Absolute Basophils (0.0 - 0.2 /CUMM) 0 PUBS MCHC (33.0 - 37.0 G/DL) 30.7 L Urines Urine Color (YEL,AMB,STR) YEL Urine Clarity (CLEAR) CLEAR Urine pH (5.0 - 8.0) 6.0 Ur Specific [place] (1.001 - 1.035) 1.020 Urine Protein (NEG,<30 MG/DL) NEG Urine Ketones (NEG) NEG Urine Nitrite (NEG) NEG Urine Bilirubin (NEG) NEG Urine Urobilinogen (0.1 - 1.0 EU/dl) 0.2 Ur Leukocyte Esterase (NEG) TRACE H Ur Microscopic SEDIMENT EXAMINED Urine RBC (0 - 5 /HPF) RARE Urine WBC (0 - 2 /HPF) RARE Ur Epithelial Cells (NONE,FEW) RARE Urine Hemoglobin (NEG) NEG Urine Glucose (N MG/DL) NEG 08/01 08/01 1649 1319 Chemistry Sodium (137 - 145 mmol/L) 145 Potassium (3.5 - 5.1 mmol/L) 4.3 Chloride (98 - 107 mmol/L) 104 Carbon Dioxide (22 - 30 mmol/L) 32 H Anion Gap (5 - 16) 9 BUN (7 - 17 mg/dL) 20 H Creatinine (0.5 - 1.0 mg/dL) 0.8 Estimated GFR (>60 ml/min) > 60 BUN/Creatinine Ratio (7 - 25 %) 25.0 Glucose (65 - 99 mg/dL) 124 H Calcium (8.4 - 10.2 mg/dL) 9.9 Total Bilirubin (0.2 - 1.3 mg/dL) 0.6 AST (14 - 36 U/L) 21 ALT (9 - 52 U/L) 25 Alkaline Phosphatase (<127 U/L) 82 Troponin I (< 0.11 ng/ml) 0.01 Lul-F-Zzccerqfxbs Pept (<125 pg/mL) 3350 H Total Protein (6.3 - 8.2 g/dL) 6.6 Albumin (3.5 - 5.0 g/dL) 3.6 Globulin (1.9 - 4.2 gm/dL) 3.0 Albumin/Globulin Ratio (1.1 - 2.2 %) 1.2 Coagulation PT (9.4 - 12.5 SEC) 15.9 H INR (0.90 - 1.19) 1.52 H APTT (25 - 37 SEC) Cancelled 32 Hematology CBC w Diff NO MAN DIFF REQ WBC (4.8 - 10.8 /CUMM) 5.5 RBC (4.20 - 5.40 /CUMM) 3.88 L Hgb (12.0 - 16.0 G/DL) 8.9 L Hct (37 - 47 %) 28.5 L MCV (81.0 - 99.0 FL) 73.6 L MCH (27.0 - 31.0 PG) 23.0 L RDW (11.5 - 14.5 %) 17.0 H Plt Count (130 - 400 /CUMM) 321 MPV (7.4 - 10.4 FL) 8.1 Gran % (42.2 - 75.2 %) 79.0 H Lymphocytes % (20.5 - 51.1 %) 11.6 L Monocytes % (1.7 - 9.3 %) 8.2 Eosinophils % (0 - 5 %) 1.1 Basophils % (0.0 - 2.0 %) 0.1 Absolute Granulocytes (1.4 - 6.5 /CUMM) 4.3 Absolute Lymphocytes (1.2 - 3.4 /CUMM) 0.6 L Absolute Monocytes (0.10 - 0.60 /CUMM) 0.4 Absolute Eosinophils (0.0 - 0.7 /CUMM) 0.1 Absolute Basophils (0.0 - 0.2 /CUMM) 0 PUBS MCHC (33.0 - 37.0 G/DL) 31.2 L Impression/Plan Impression/Plan Impression/Plan: Physical Exam General Appearance: well developed/nourished, alert, awake, anxious, mild distress, obese Head: atraumatic, normal appearance Eyes: Bilateral: PERRL, EOMI, pale conjunctivae. Ears, Nose, Throat: normal pharynx, normal ENT inspection, moist mucus membranes Neck: normal inspection, supple, full range of motion, no midline tenderness Respiratory: chest non-tender, no respiratory distress, decreased breath sounds (right), rales (right) Cardiovascular: normal peripheral pulses, irregularly irregular Peripheral Pulses: 4+ carotid (R), 4+ carotid (L) Gastrointestinal: normal bowel sounds, soft, non-tender, no organomegaly Extremities: normal inspection, normal capillary refill, normal range of motion, no edema Neurologic/Psych: no motor/sensory deficits, awake, alert, oriented x 3, normal mood/affect, 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 Skin: intact, normal color Lymphatic: no anterior cervical esteban IMPRESSION This is a lady with the hypertension, hyperlipidemia, paroxysmal atrial fibrillation, previous history of pulmonary embolism with no new pulmonary embolism at this time (neg cta) who is on eloquis, 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 Her issues include * Enlarging right pleural effusion which is chronic and this seems to be getting worse in the recent past with hyperdense material, malignant effusion needs to be ruled out. Unlikely empyema etc. Pt may have had a component of hemorraghic effusion before. Most of the shortness of breath appears to be related to the worsening effusion * Significant history of pulmonary embolism in the past now on eloquis with no active PE. Patient is on eloquis for atrial fibrillation as well as for venous thromboembolism rx and prophylaxix * Paroxymsmal atrial fibrillation, hypertension, ischemic heart on appropriate medications. Recently, her Lasix has been held with the no clinical evidence suggestive of acute pulmonary edema. However, her proBNP is elevated she may have a component of acute on chronic diastolic heart failure. * Breast cancer, with bone (spine aswell) on chemotherapy and she is on chronic steroid therapy (per cmr). This needs to be confirmed with the oncology * Hypertension, hyperlipidemia, previous GERD, stable. 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 * Once she is off eloquis for two days we will obtain a large volume thoracentesis, and if she does have malignant effusion, then she might benefit from a Pleurx catheter. See if IR can do thoracentesis in am (diagnostic and thereapeutic) * Gentle diuresis, * Follow BUN and creatinine. * Keep the head of bed elevated as she has a pretty large hiatal hernia. * Continue her proton pump inhibitor. * Continue her blood pressure medications. Confirm with Subhash Ebuanks MD about her outpatient dexamethasone dose. We will follow closely
[2016-08-02 12:48] LABS: PTT 80 SEC (25-37)
--- NOTE | 2016-08-02 12:57 | Event Note ---
Event Note Event Note: This morning, I contacted Dr. Eubanks office for records about Decadron. There is no records about Decadron per Dr. Eubanks. I contacted [facility] pharmacy, the patient used to be on Decadron during July and August 2015 The resident and attending Dr. Stephan navarro.
[2016-08-02 15:30] VITALS: BP 122/70
[2016-08-02 23:04] VITALS: BP 128/78
[2016-08-03 01:05] LABS: PTT 101 SEC (25-37)
--- NOTE | 2016-08-03 07:25 | PN- Oncology ---
Subjective Subjective: Offers no new complaints Review of Systems: 12 point review of systems unchanged Objective Vital Signs and I&Os Vital Signs Date Time Temp Pulse Resp B/P Pulse O2 O2 Flow FiO2 Ox Delivery Rate 08/03 0000 Nasal 2.0L Cannula 08/02 2304 98.0 67 20 128/78 99 Nasal 2.0L Cannula 08/02 1600 96 Nasal 2.0L Cannula 08/02 1530 98.4 70 20 122/70 99 Nasal 2.0L Cannula 08/02 0937 140/74 08/02 0853 97.9 83 16 140/80 98 Nasal 2.0L Cannula 08/02 0842 98 Nasal 2.0L Cannula Intake & Output 08/03 0800 08/03 0000 08/02 1600 08/02 0800 08/02 0000 08/01 1600 Intake Total 850 580 424 266 Output Total 897 774 4957 Balance -50 -120 424 -2834 Intake, IV 180 184 26 Intake, Oral 850 400 240 240 Number 0 Bowel Movements Output, Urine 182 464 5820 Patient 186 lb 195 lb Weight Gen.: in NAD ENT: Sclera anicteric Chest: Normal respiratory effort, decreased breath sounds right hemithorax Cor: RRR, no extra sounds Abdomen: Soft, bowel sounds present, no tenderness, no rebound Extremities: Without clubbing, cyanosis, or edema Neurology: Alert and oriented 3, no gross deficit Current Medications: Current Medications Sig/Dhara Start time Last Medication Dose Route Stop Time Status Admin Acetaminophen 650 MG Q6P PRN 08/01 1700 AC PO Acetaminophen/ 1 TAB Q6P PRN 08/01 1700 AC Hydrocodone Bitart PO Atorvastatin Calcium 10 MG 1700 08/02 1700 AC 08/02 PO 1643 Ferrous Sulfate 325 MG TID 08/02 1000 08/02 PO 2130 Furosemide 0 .STK-MED ONE 08/02 1451 DC IV Furosemide 40 MG DAILY 08/02 1000 AC 08/02 PO 0937 Heparin Sodium 25,000 UNIT Q24H 08/01 2200 AC 08/02 (Porcine) IV 2133 Sodium Chloride 500 ML Metoprolol Succinate 100 MG DAILY 08/02 1000 AC 08/02 PO 0937 Morphine Sulfate 2 MG Q4P PRN 08/01 1700 AC IV Omeprazole 40 MG DAILY AC 08/02 0700 AC 08/02 PO 0641 Oxycodone/ 0 .STK-MED ONE 08/02 1102 DC Acetaminophen PO Patient Medication 1 ED ONE ONE 08/02 1400 DC Teaching ED 08/02 1401 Potassium Chloride 10 MEQ DAILY 08/02 1000 AC 08/02 PO 0937 Results Last 24 Hours of Lab Results: Laboratory Tests 08/02 08/02 2330 1215 Coagulation APTT (25 - 37 SEC) 101 *H 80 H Assessment/Plan Assessment/Recommendations: 1. Dyspnea-plans for diagnostic/therapeutic thoracentesis 2. Metastatic breast cancer-await above 3. Iron deficiency-patient begun on oral iron supplementation
--- NOTE | 2016-08-03 08:46 | PN- Housestaff ---
FRANCHESCA KRISHNA,[facility] 08/03/16 0846: Subjective Follow-up For: Lung cancer with metastasis Shortness of breath Tele-Events Since Last Visit: Patient is to [facility] Subjective: Patient was seen and examined this morning, she was sleeping comfortably, denied any headache, chest pain, palpitation, shortness of breath. She is on 2 L nasal cannula saturation 98%. Review of Systems Constitutional: Denies: see HPI. Objective Last 24 Hrs of Vital Signs/I&O Vital Signs Date Time Temp Pulse Resp B/P Pulse O2 O2 Flow FiO2 Ox Delivery Rate 08/03 0937 97.5 80 20 130/70 08/03 0859 97.5 80 20 130/70 98 Nasal 2.0L Cannula 08/03 0800 Nasal 2.0L Cannula 08/03 0000 Nasal 2.0L Cannula 08/02 2304 98.0 67 20 128/78 99 Nasal 2.0L Cannula 08/02 1600 96 Nasal 2.0L Cannula 08/02 1530 98.4 70 20 122/70 99 Nasal 2.0L Cannula Intake & Output 08/03 1600 08/03 0800 08/03 0000 Intake Total 385 850 Output Total 500 900 Balance -115 -50 Intake, IV 335 Intake, Oral 50 850 Output, Urine 500 900 Physical Exam General Appearance: Alert, Oriented X3, Cooperative, No Acute Distress Skin: No Rashes, No Breakdown, No Significant Lesion HEENT: Atraumatic, PERRLA, EOMI, Mucous Membr. moist/pink Neck: Supple Cardiovascular: Regular Rate, Normal S1, Normal S2, No Murmurs Lungs: Bilateral decrease air entery right basal crackles Abdomen: Normal Bowel Sounds, Soft, No Tenderness Neurological: Normal Speech, Strength at 5/5 X4 Ext, Normal Tone, Sensation Intact, Cranial Nerves 3-12 NL, Reflexes 2+ Extremities: No Clubbing, No Cyanosis, No Edema, Normal Pulses Assessment/Plan Assessment: Ms Kern is a 76 years old female with past medical history significant for Breast Ca (ER+; Her2 neg; Stage 4 w/ bony mets, s/p RCT s/p mastectomy 2010 on ER antagoinis-Fulvestrant), previous radiation therapy for vertebral body metastasis, right sided chronic pleural effusion, PE and paroxysmal Afib on Eliqus. Patient presented with chief complaint of sending shortness of breath. Problem list #Shortness of breath #Breast cancer with metastasis #Paroxysmal atrial fibrillation #Previous history of PE #Microcytic anemia CTA 08/01/16 IMPRESSION: 1. Adequate contrast opacification of the pulmonary arterial vasculature, without evidence of pulmonary embolism to the level of the segmental pulmonary arteries. Evaluation of the subsegmental pulmonary arteries is limited given interval enlargement of a previously identified right-sided pleural effusion. 2. As noted above, there has been interval enlargement of a previously identified moderate right-sided pleural effusion, now large in volume. There is overlying right basilar compressive atelectasis. A triangular wedge-shaped opacity within the right middle lobe could reflect subsegmental atelectasis although underlying consolidation secondary to superimposed infection not be excluded in the appropriate clinical setting. 3. Enlarged and heterogeneous left thyroid lobe, corresponding to the patient's previously visualized thyroid goiter. VTE: Negative for pulmonary embolism. #Shortness of breath -Patient presented with history of worsening shortness of breath. Recently she started to have shortness of breath on rest -Could be due to multiple factors; chronic pleural effusion (recent CXR suggest increased pleural effusion from the prior test 06/22) and/or metastatic breast cancer and/or microcytic anemia -Hematology oncology Dr. higuera consultation was obtained -Pulmonology consultation Herminio Gore MD was obtained -Eliquis was last adminstered on 08/01/16, continue heparin IV in anticipation for thoracocentesis diagnostic and therapeutic -We'll resume Eliquis after the procedure -Patient is scheduled ultrasound-guided thoracocentesis today, the required lab and microbiology tests were ordered Serum LDH and total protein Body fluid total protein Body fluid glucose Body fluid cell count Body fluid LDH Cytology -According to light's criteria, the pleural protein to serum protein ratio is 0.4 and pleural LDH to serum LDH ratio is 1.1 which met the criteria for exudative pleural effusion most probably related to the HX of breast cancer with metastasis -We contacted the lab for cytology, it will be sent out study and the results could be obtained on Saturday -Patient has history of large hiatal hernia, continue proton pump inhibitor and keep elevated bed position -Last echo August 2015 although was limited test, didn't show any abnormal right or left ventricular function, no appreciable pulmonary hypertension, mild left ventricular hypertrophy, ejection fraction 55-60% -CTA negative for PE -Regarding Decadron, Dr. Hartmann was contacted and no data in his office for Decadron. The pharmacy was contacted and patient was on Decadron in July and August 2015 -Continue frusemide 40 mg daily by mouth #Paroxysmal atrial fibrillation -Continue metoprolol succinate 100 mg by mouth daily -Discontinue IV heparin drip -Resume Eliquis 5 mg twice a day after the thoracocentesis today #Microcytic anemia -Ferrous sulfate 325 3 times a day milligram daily #Hypertension and hyperlipidemia -Continue atorvastatin 10 mg daily -Metoprolol succinate 100 mg daily -Patient is not taking hydrochlorothiazide and lisinopril anymore -DVT prophylaxis, IV heparin -Diet regular diet -Code full -Consultation pulmonology, heme oncology Problem List: 1. HTN (hypertension) 2. HLD (hyperlipidemia) 3. Breast cancer 4. Atrial fibrillation with normal ventricular rate 5. Metastatic breast cancer 6. Pleural effusion Pain Ratin Pain Location: N/A Pain Goal: Pain 4 or less Pain Plan: Acetaminophen 650 for pain scale 1-3 Vicodin 1 tab every 6h for pain scale 4-6 Morphine IV 2 mg every 4 for pain scale 7-10 Tomorrow's Labs & Rationales: CBC, CMP BARBARA JARAMILLO MD 08/03/16 2103: Attending MD Review Statement Attending Statement Attending MD Statement: examined this patient, discuss w/resident/PA/HEALTH OFFICER, agreed w/resident/PA/HEALTH OFFICER, reviewed EMR data (avail), discussed with nursing, discussed with case mgmt, reviewed images Attending Assessment/Plan: The patient was seen and discussed with house staff. Agree with the plan of care as outlined.
[2016-08-03 08:59] VITALS: BP 130/70
[2016-08-03 09:43] LABS: ABSOLUTE BASOPHIL COUNT 0 /CUMM (0.0-0.2); ABSOLUTE EOSINOPHIL COUNT 0.1 /CUMM (0.0-0.7); ABSOLUTE GRANULOCYTE CT 4.3 /CUMM (1.4-6.5); ABSOLUTE LYMPH COUNT 1.1 /CUMM (1.2-3.4); ABSOLUTE MONOCYTE COUNT 0.7 /CUMM (0.10-0.60); BASOPHIL % 0.3 % (0.0-2.0); EOSINOPHIL % 0.9 % (0-5); GRANULOCYTE % 70.6 % (42.2-75.2); HEMATOCRIT 25.8 % (37-47); MEAN CORPUSCULAR HGB 22.7 PG (27.0-31.0); MEAN CORPUSCULAR HGB CONC 31.2 G/DL (33.0-37.0); MEAN CORPUSCULAR VOLUME 72.7 FL (81.0-99.0); MEAN PLATELET VOLUME 8.6 FL (7.4-10.4); PLATELET COUNT 293 /CUMM (130-400); RBC DISTRIBUTION WIDTH 16.5 % (11.5-14.5); RED BLOOD CELL CT 3.54 /CUMM (4.20-5.40); WHITE BLOOD CELL COUNT 6.1 /CUMM (4.8-10.8)
[2016-08-03 09:47] LABS: PTT 60 SEC (25-37)
--- NOTE | 2016-08-03 12:39 | PN- Pulmonary ---
See Addendum Subjective HPI/Critical Care Issues: Offers no new complaints Review of Systems: 12 point review of systems unchanged Still has dyspnea Objective Current Medications: Current Medications Sig/Dhara Start time Last Medication Dose Route Stop Time Status Admin Acetaminophen 650 MG Q6P PRN 08/01 1700 AC PO Acetaminophen/ 1 TAB Q6P PRN 08/01 1700 AC Hydrocodone Bitart PO Atorvastatin Calcium 10 MG 1700 08/02 1700 AC 08/02 PO 1643 Dextrose/Sodium 1,000 ML ONCE ONE 08/03 1015 AC 08/03 Chloride IV 08/03 2334 1015 Ferrous Sulfate 325 MG TID 08/02 1000 AC 08/03 PO 0937 Furosemide 0 .STK-MED ONE 08/02 1451 DC IV Furosemide 40 MG DAILY 08/02 1000 AC 08/03 PO 0937 Heparin Sodium 25,000 UNIT Q24H 08/01 2200 08/02 (Porcine) IV 2133 Sodium Chloride 500 ML Metoprolol Succinate 100 MG DAILY 08/02 1000 AC 08/03 PO 0937 Morphine Sulfate 2 MG Q4P PRN 08/01 170 AC IV Omeprazole 40 MG DAILY AC 08/02 0700 AC 08/02 PO 0641 Patient Medication 1 ED ONE ONE 08/02 1400 DC Teaching ED 08/02 1401 Potassium Chloride 10 MEQ DAILY 08/02 1000 AC 08/03 PO 0937 Laboratory Tests 08/03 08/02 08/02 0805 2330 1215 Chemistry Sodium (137 - 145 mmol/L) 142 Potassium (3.5 - 5.1 mmol/L) 3.9 Chloride (98 - 107 mmol/L) 100 Carbon Dioxide (22 - 30 mmol/L) 37 H Anion Gap (5 - 16) 5 BUN (7 - 17 mg/dL) 14 Creatinine (0.5 - 1.0 mg/dL) 0.8 Estimated GFR (>60 ml/min) > 60 BUN/Creatinine Ratio (7 - 25 %) 17.5 Lactate Dehydrogenase (313 - 618 U/L) 322 Total Protein (6.3 - 8.2 g/dL) 5.9 L Coagulation APTT (25 - 37 SEC) 60 H 101 *H 80 H Hematology CBC w Diff NO MAN DIFF REQ WBC (4.8 - 10.8 /CUMM) 6.1 RBC (4.20 - 5.40 /CUMM) 3.54 L Hgb (12.0 - 16.0 G/DL) 8.0 L Hct (37 - 47 %) 25.8 L MCV (81.0 - 99.0 FL) 72.7 L MCH (27.0 - 31.0 PG) 22.7 L RDW (11.5 - 14.5 %) 16.5 H Plt Count (130 - 400 /CUMM) 293 MPV (7.4 - 10.4 FL) 8.6 Gran % (42.2 - 75.2 %) 70.6 Lymphocytes % (20.5 - 51.1 %) 17.5 L Monocytes % (1.7 - 9.3 %) 10.7 H Eosinophils % (0 - 5 %) 0.9 Basophils % (0.0 - 2.0 %) 0.3 Absolute Granulocytes (1.4 - 6.5 /CUMM) 4.3 Absolute Lymphocytes (1.2 - 3.4 /CUMM) 1.1 L Absolute Monocytes (0.10 - 0.60 /CUMM) 0.7 H Absolute Eosinophils (0.0 - 0.7 /CUMM) 0.1 Absolute Basophils (0.0 - 0.2 /CUMM) 0 PUBS MCHC (33.0 - 37.0 G/DL) 31.2 L 08/02 08/01 0400 1735 Chemistry Sodium (137 - 145 mmol/L) 145 Potassium (3.5 - 5.1 mmol/L) 3.9 Chloride (98 - 107 mmol/L) 103 Carbon Dioxide (22 - 30 mmol/L) 35 H Anion Gap (5 - 16) 8 BUN (7 - 17 mg/dL) 17 Creatinine (0.5 - 1.0 mg/dL) 0.8 Estimated GFR (>60 ml/min) > 60 BUN/Creatinine Ratio (7 - 25 %) 21.3 Coagulation APTT (25 - 37 SEC) 111 *H Hematology CBC w Diff NO MAN DIFF REQ WBC (4.8 - 10.8 /CUMM) 6.8 RBC (4.20 - 5.40 /CUMM) 3.92 L Hgb (12.0 - 16.0 G/DL) 8.8 L Hct (37 - 47 %) 28.7 L MCV (81.0 - 99.0 FL) 73.2 L MCH (27.0 - 31.0 PG) 22.5 L RDW (11.5 - 14.5 %) 16.7 H Plt Count (130 - 400 /CUMM) 296 MPV (7.4 - 10.4 FL) 8.1 Gran % (42.2 - 75.2 %) 64.8 Lymphocytes % (20.5 - 51.1 %) 19.5 L Monocytes % (1.7 - 9.3 %) 12.1 H Eosinophils % (0 - 5 %) 3.6 Basophils % (0.0 - 2.0 %) 0 L Absolute Granulocytes (1.4 - 6.5 /CUMM) 4.4 Absolute Lymphocytes (1.2 - 3.4 /CUMM) 1.3 Absolute Monocytes (0.10 - 0.60 /CUMM) 0.8 H Absolute Eosinophils (0.0 - 0.7 /CUMM) 0.2 Absolute Basophils (0.0 - 0.2 /CUMM) 0 PUBS MCHC (33.0 - 37.0 G/DL) 30.7 L Urines Urine Color (YEL,AMB,STR) YEL Urine Clarity (CLEAR) CLEAR Urine pH (5.0 - 8.0) 6.0 Ur Specific Cove (1.001 - 1.035) 1.020 Urine Protein (NEG,<30 MG/DL) NEG Urine Ketones (NEG) NEG Urine Nitrite (NEG) NEG Urine Bilirubin (NEG) NEG Urine Urobilinogen (0.1 - 1.0 EU/dl) 0.2 Ur Leukocyte Esterase (NEG) TRACE H Ur Microscopic SEDIMENT EXAMINED Urine RBC (0 - 5 /HPF) RARE Urine WBC (0 - 2 /HPF) RARE Ur Epithelial Cells (NONE,FEW) RARE Urine Hemoglobin (NEG) NEG Urine Glucose (N MG/DL) NEG 08/01 08/01 1649 1319 Chemistry Sodium (137 - 145 mmol/L) 145 Potassium (3.5 - 5.1 mmol/L) 4.3 Chloride (98 - 107 mmol/L) 104 Carbon Dioxide (22 - 30 mmol/L) 32 H Anion Gap (5 - 16) 9 BUN (7 - 17 mg/dL) 20 H Creatinine (0.5 - 1.0 mg/dL) 0.8 Estimated GFR (>60 ml/min) > 60 BUN/Creatinine Ratio (7 - 25 %) 25.0 Glucose (65 - 99 mg/dL) 124 H Calcium (8.4 - 10.2 mg/dL) 9.9 Total Bilirubin (0.2 - 1.3 mg/dL) 0.6 AST (14 - 36 U/L) 21 ALT (9 - 52 U/L) 25 Alkaline Phosphatase (<127 U/L) 82 Troponin I (< 0.11 ng/ml) 0.01 [id number] Pept (<125 pg/mL) 3350 H Total Protein (6.3 - 8.2 g/dL) 6.6 Albumin (3.5 - 5.0 g/dL) 3.6 Globulin (1.9 - 4.2 gm/dL) 3.0 Albumin/Globulin Ratio (1.1 - 2.2 %) 1.2 Coagulation PT (9.4 - 12.5 SEC) 15.9 H INR (0.90 - 1.19) 1.52 H APTT (25 - 37 SEC) Cancelled 32 Hematology CBC w Diff NO MAN DIFF REQ WBC (4.8 - 10.8 /CUMM) 5.5 RBC (4.20 - 5.40 /CUMM) 3.88 L Hgb (12.0 - 16.0 G/DL) 8.9 L Hct (37 - 47 %) 28.5 L MCV (81.0 - 99.0 FL) 73.6 L MCH (27.0 - 31.0 PG) 23.0 L RDW (11.5 - 14.5 %) 17.0 H Plt Count (130 - 400 /CUMM) 321 MPV (7.4 - 10.4 FL) 8.1 Gran % (42.2 - 75.2 %) 79.0 H Lymphocytes % (20.5 - 51.1 %) 11.6 L Monocytes % (1.7 - 9.3 %) 8.2 Eosinophils % (0 - 5 %) 1.1 Basophils % (0.0 - 2.0 %) 0.1 Absolute Granulocytes (1.4 - 6.5 /CUMM) 4.3 Absolute Lymphocytes (1.2 - 3.4 /CUMM) 0.6 L Absolute Monocytes (0.10 - 0.60 /CUMM) 0.4 Absolute Eosinophils (0.0 - 0.7 /CUMM) 0.1 Absolute Basophils (0.0 - 0.2 /CUMM) 0 PUBS MCHC (33.0 - 37.0 G/DL) 31.2 L Microbiology Date/Time Procedure - Status Source Growth 08/03 599 Body Fluid Culture - COLB BODY FLUID 08/03 599 Gram Stain - COLB BODY FLUID Vital Signs & I&O Last 24 Hrs of Vitals and I&O: Vital Signs Date Time Temp Pulse Resp B/P Pulse O2 O2 Flow FiO2 Ox Delivery Rate 08/03 0937 97.5 80 20 130/70 08/03 0859 97.5 80 20 130/70 98 Nasal 2.0L Cannula 08/03 0800 Nasal 2.0L Cannula 08/03 0000 Nasal 2.0L Cannula 08/02 2304 98.0 67 20 128/78 99 Nasal 2.0L Cannula 08/02 1600 96 Nasal 2.0L Cannula 08/02 1530 98.4 70 20 122/70 99 Nasal 2.0L Cannula Intake & Output 08/03 1600 08/03 0800 08/03 0000 Intake Total 850 Output Total 900 Balance -50 Intake, Oral 850 Output, Urine 900 Impression/Plan Impression/Plan Impression/Plan: Physical Exam General Appearance: well developed/nourished, alert, awake, anxious, mild distress, obese Head: atraumatic, normal appearance Eyes: Bilateral: PERRL, EOMI, pale conjunctivae. Ears, Nose, Throat: normal pharynx, normal ENT inspection, moist mucus membranes Neck: normal inspection, supple, full range of motion, no midline tenderness Respiratory: chest non-tender, no respiratory distress, decreased breath sounds (right), rales (right) Cardiovascular: normal peripheral pulses, irregularly irregular Peripheral Pulses: 4+ carotid (R), 4+ carotid (L) Gastrointestinal: normal bowel sounds, soft, non-tender, no organomegaly Extremities: normal inspection, normal capillary refill, normal range of motion, no edema Neurologic/Psych: no motor/sensory deficits, awake, alert, oriented x 3, normal mood/affect, 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 Skin: intact, normal color Lymphatic: no anterior cervical esteban IMPRESSION This is a lady with the hypertension, hyperlipidemia, paroxysmal atrial fibrillation, previous history of pulmonary embolism with no new pulmonary embolism at this time (neg cta) who is on eloquis, 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 Her issues include * Enlarging right pleural effusion which is chronic and this seems to be getting worse in the recent past with hyperdense material, malignant effusion needs to be ruled out. Unlikely empyema etc. Pt may have had a component of hemorraghic effusion before. Most of the shortness of breath appears to be related to the worsening effusion * Significant history of pulmonary embolism in the past now on eloquis with no active PE. Patient is on eloquis for atrial fibrillation as well as for venous thromboembolism rx and prophylaxix * Paroxymsmal atrial fibrillation, hypertension, ischemic heart on appropriate medications. Recently, her Lasix has been held with the no clinical evidence suggestive of acute pulmonary edema. However, her proBNP is elevated she may have a component of acute on chronic diastolic heart failure. * Breast cancer, with bone (spine aswell) on chemotherapy and she is on chronic steroid therapy (per cmr). This needs to be confirmed with the oncology * Hypertension, hyperlipidemia, previous GERD, stable. 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 Till thoracentesis and then can resume anticog po and do not restart heparin * Diagnostic and therapeutic tap today * Gentle diuresis, * Follow BUN and creatinine. * Keep the head of bed elevated as she has a pretty large hiatal hernia. * Continue her proton pump inhibitor. * Continue her blood pressure medications. IF she goes home after thoracentesis pt can follow up with me after she gets a cxr next week for analysis and further planning of the mgt of effusion We will follow closely
--- NOTE | 2016-08-03 13:28 | RADIOLOGY REPORT ---
EXAMINATION:\H\ \N\XR CHEST CLINICAL INFORMATION: Status post right thoracentesis, rule out pneumothorax COMPARISON: 08/01/2016 TECHNIQUE: AP view of the chest was obtained. FINDINGS: A moderate sized right pleural effusion is present, which appears slightly decreased in size from 08/01/2016. Aerated portions of the lungs appear clear bilaterally. No evidence of pneumothorax or overt pulmonary edema. The cardiomediastinal silhouette is stable. Rightward tracheal deviation secondary to an enlarged left thyroid lobe is noted. Calcification is present at the aortic arch. Right axillary clips are noted. No acute osseous findings are seen. IMPRESSION: Moderate right pleural effusion appears slightly decreased in size from 08/01/2016. No evidence of pneumothorax.
--- NOTE | 2016-08-03 14:33 | Patient Discharge Instructions ---
Discharge Instructions General Discharge Information You were seen/treated for: Shortness of breath due to worsening Rt. sided pleural effusion You had these procedures: Diagnostic & therapeutic thoracentesis Watch for these problems: Fever, worsening shortness of breath Special Instructions: -Please follow up with your PCP within 1 week after discharge -Please follow-up with radio station engineer Herminio Gore MD after discharge -Please get chest x-ray next week before your appointment with Dr. Gore. A prescription for chest x-ray will be provided upon discharge -Please follow-up with Dr. Eubanks after discharge Diet Continue normal diet: Yes Recommended Diet: Regular Activity Full Activity/No Limits: Yes Additional ACTIVITY Info: Increase activity as tolerated Acute Coronary Syndrome Inclusion Criteria At DC or during hospital stay patient has or had the following: ACS DIAGNOSIS No Discharge Core Measures Meds if any: Prescribed or Continued at Discharge Meds if any: NOT Prescribed or Continued at Discharge Congestive Heart Failure Inclusion Criteria At DC or during hospital stay patient has or had the following: CHF DIAGNOSIS No Discharge Core Measures Meds if any: Prescribed or Continued at Discharge Meds if any: NOT Prescribed or Continued at Discharge Cerebrovascular accident Inclusion Criteria At DC or during hospital stay patient has or had the following: CVA/TIA Diagnosis No Discharge Core Measures Meds if any: Prescribed or Continued at Discharge Meds if any: NOT Prescribed or Continued at Discharge Venous thromboembolism Inclusion Criteria VTE Diagnosis No VTE Type NONE VTE Confirmed by (Test) NONE Discharge Core Measures - Per Current guidelines, there needs to be overlap - treatment for the first 5 days of Warfarin therapy. - If discharged on Warfarin prior to 5 days of - overlap therapy, the patient will need to be - assessed for post discharge needs including - *Post discharge parental anticoagulation - *Warfarin and/or parental anticoagulation education - *Follow up date to check INR post discharge At least 5 days overlap therapy as Inpatient No Meds if any: Prescribed or Continued at Discharge Note: Overlap Therapy is Warfarin and Anticoagulant Meds if any: NOT Prescribed or Continued at Discharge
[2016-08-03 15:04] VITALS: BP 110/62
[2016-08-03 15:38] VITALS: BP 120/50
--- NOTE | 2016-08-03 16:39 | ULTRASOUND REPORT ---
PROCEDURE: Thoracentesis CLINICAL INFORMATION: Pleural Effusion COMPARISON: Chest x-ray and chest CT 08/01/2016 TECHNIQUE: Indirect ultrasound guided thoracentesis using a 5 Sammarinese Yueh catheter. FINDINGS: Informed consent was obtained from the patient prior to the procedure. During this process, the procedure alternatives were explained, along with the intended outcome and benefits. The risks of the procedure, as well as the risk of not doing the procedure, was discussed. The patient was given the opportunity to ask questions regarding the procedure and appeared competent to make medical decisions. A signed consent form which documents this discussion was placed in the medical record. A timeout procedure was performed. Ultrasound evaluation of the chest for pleural fluid was performed. A large pleural effusion is noted on the right side. Using standard interventional and sterile techniques, lidocaine was used to anesthetize the region. A 5 S[place] Yueh catheter was introduced into the right pleural fluid using standard safety needle technique. Approximately 760 mL of light yellow fluid was removed into the Vacutainer bottles. The catheter was then removed. Good hemostasis was achieved. The patient tolerated the procedure well. A sterile dressing was placed. The patient was discharged from the department in stable condition. Patient scheduled for post procedure followup x-ray. COMPLICATIONS: None. IMPRESSION: Successful ultrasound-guided thoracentesis of 760 mL of fluid.
[2016-08-03] MEDS ORDERED: TOPROL XL100 M1 PO (17:24)
[2016-08-03] MEDS ORDERED: LASIX40 M1 PO (17:24)
[2016-08-03] MEDS ORDERED: FERROUS SULFAT325 M3 PO (17:24)
[2016-08-03 23:00] VITALS: BP 130/54
[2016-08-04 08:15] VITALS: BP 118/46
--- NOTE | 2016-08-04 09:33 | PN- Housestaff ---
FRANCHESCA KRISHNA,[facility] 08/04/16 0932: Subjective Follow-up For: Breast cancer with metastasis Pleural effusion Tele-Events Since Last Visit: Off monitor Subjective: Patient was seen and examined this morning, patient endorses improvement in shortness of breath. No overnight events reported by the patient or the nurses. No acute distress, vital signs are stable. Review of Systems Constitutional: Denies: see HPI. Objective Last 24 Hrs of Vital Signs/I&O Vital Signs Date Time Temp Pulse Resp B/P Pulse O2 O2 Flow FiO2 Ox Delivery Rate 08/04 1616 98.7 62 20 112/50 97 Nasal 1.0L Cannula 08/04 1600 97 Nasal 2.0L Cannula 08/04 0939 68 118/46 08/04 0815 98.5 68 20 118/46 95 Nasal Cannula 08/04 0800 Nasal 2.0L Cannula 08/04 0000 95 Nasal 2.0L Cannula 08/03 2300 98.2 62 18 130/54 95 Nasal 2.0L Cannula Intake & Output 08/04 1600 08/04 0800 08/04 0000 Intake Total 695 400 120 Output Total 500 900 Balance 195 -500 120 Intake, Blood 200 Product Intake, IV 30 Intake, Oral 465 400 120 Output, Urine 500 900 Patient 84.538 kg Weight Physical Exam General Appearance: Alert, Oriented X3, Cooperative, No Acute Distress Skin: No Rashes, No Breakdown, No Significant Lesion HEENT: Atraumatic, PERRLA, EOMI, Mucous Membr. moist/pink Neck: Supple Cardiovascular: Regular Rate, Normal S1, Normal S2, No Murmurs Lungs: right side diffuse crackles Abdomen: Normal Bowel Sounds, Soft, No Tenderness Neurological: Normal Gait, Normal Speech, Strength at 5/5 X4 Ext, Normal Tone, Sensation Intact, Cranial Nerves 3-12 NL, Reflexes 2+ Extremities: No Clubbing, No Cyanosis, No Edema, Normal Pulses Assessment/Plan Assessment: Ms Kern is a 76 years old female with past medical history significant for Breast Ca (ER+; Her2 neg; Stage 4 w/ bony mets, s/p RCT s/p mastectomy 2010 on ER antagoinis-Fulvestrant), previous radiation therapy for vertebral body metastasis, right sided chronic pleural effusion, PE and paroxysmal Afib on Eliqus. Patient presented with chief complaint of sending shortness of breath. Problem list #Shortness of breath #Breast cancer with metastasis #Paroxysmal atrial fibrillation #Previous history of PE #Microcytic anemia CTA 08/01/16 IMPRESSION: 1. Adequate contrast opacification of the pulmonary arterial vasculature, without evidence of pulmonary embolism to the level of the segmental pulmonary arteries. Evaluation of the subsegmental pulmonary arteries is limited given interval enlargement of a previously identified right-sided pleural effusion. 2. As noted above, there has been interval enlargement of a previously identified moderate right-sided pleural effusion, now large in volume. There is overlying right basilar compressive atelectasis. A triangular wedge-shaped opacity within the right middle lobe could reflect subsegmental atelectasis although underlying consolidation secondary to superimposed infection not be excluded in the appropriate clinical setting. 3. Enlarged and heterogeneous left thyroid lobe, corresponding to the patient's previously visualized thyroid goiter. VTE: Negative for pulmonary embolism. #Shortness of breath -Patient presented with history of worsening shortness of breath. Recently she started to have shortness of breath on rest -Could be due to multiple factors; chronic pleural effusion (recent CXR suggest increased pleural effusion from the prior test 06/22) and/or metastatic breast cancer and/or microcytic anemia -Hematology oncology Dr. higuera consultation was obtained -Pulmonology consultation Herminio Gore MD was obtained -Continue Eliquis 5 mg twice a day -Ultrasound-guided thoracocentesis diagnostic and therapeutic 08/03, 50 mL was removed t -According to light's criteria, the pleural protein to serum protein ratio is 0.4 and pleural LDH to serum LDH ratio is 1.1 which met the criteria for exudative pleural effusion most probably related to the HX of breast cancer with metastasis -Cytology results on Saturday -Patient has history of large hiatal hernia, continue proton pump inhibitor and keep elevated bed position -Last echo August 2015 although was limited test, didn't show any abnormal right or left ventricular function, no appreciable pulmonary hypertension, mild left ventricular hypertrophy, ejection fraction 55-60% -CTA negative for PE -Regarding Decadron, Dr. Hartmann was contacted and no data in his office for Decadron. The pharmacy was contacted and patient was on Decadron in July and August 2015 -Continue frusemide 40 mg daily by mouth -PT evaluation tomorrow -Strict I/O after blood transfusion -Patient is on home oxygen when necessary #Paroxysmal atrial fibrillation -Continue metoprolol succinate 100 mg by mouth daily -Discontinue IV heparin drip -Continue Eliquis 5 mg twice a day #Microcytic anemia -Ferrous sulfate 325 3 times a day milligram daily -H&H 6.9.4 -Patient received 2 units of RBC 08/04 #Hypertension and hyperlipidemia -Continue atorvastatin 10 mg daily -Metoprolol succinate 100 mg daily -Patient is not taking hydrochlorothiazide and lisinopril anymore -DVT prophylaxis Eliquis -Diet regular diet -Code full -Consultation pulmonology, heme oncology, PT evaluation Problem List: 1. Atrial fibrillation with normal ventricular rate 2. Metastatic breast cancer Pain Ratin Pain Location: n/a Pain Goal: Pain 4 or less Pain Plan: see medication Tomorrow's Labs & Rationales: CBc, CMP BARBARA JARAMILLO MD 08/04/162: Attending MD Review Statement Attending Statement Attending MD Statement: examined this patient, discuss w/resident/PA/OIL PROCESSING TECHNICIAN, agreed w/resident/PA/OIL PROCESSING TECHNICIAN, reviewed EMR data (avail), discussed with nursing, discussed with case mgmt, amended to note Attending Assessment/Plan: The patient was seen and discussed with house staff. Transfusion done today and will follow response. PT consult for ambulation.
[2016-08-04 10:41] LABS: ABSOLUTE EOSINOPHIL COUNT 0 /CUMM (0.0-0.7); ABSOLUTE MONOCYTE COUNT 0.7 /CUMM (0.10-0.60); HEMATOCRIT 22.4 % (37-47); MEAN CORPUSCULAR VOLUME 73.3 FL (81.0-99.0); MEAN PLATELET VOLUME 8.5 FL (7.4-10.4); WHITE BLOOD CELL COUNT 5.4 /CUMM (4.8-10.8)
[2016-08-04 10:45] LABS: ABSOLUTE BASOPHIL COUNT 0 /CUMM (0.0-0.2); ABSOLUTE GRANULOCYTE CT 3.7 /CUMM (1.4-6.5); BASOPHIL % 0.7 % (0.0-2.0); EOSINOPHIL % 0.6 % (0-5); MEAN CORPUSCULAR HGB 22.6 PG (27.0-31.0); MEAN CORPUSCULAR HGB CONC 30.8 G/DL (33.0-37.0); PLATELET COUNT 211 /CUMM (130-400); RBC DISTRIBUTION WIDTH 16.7 % (11.5-14.5); RED BLOOD CELL CT 3.06 /CUMM (4.20-5.40)
[2016-08-04 16:16] VITALS: BP 112/50
[2016-08-04 22:00] VITALS: BP 122/64
--- NOTE | 2016-08-04 22:51 | Event Note ---
Event Note Event Note: Situation: * Anemia: H&H 6.9/22.4 Brief: * Patient is status post thoracentesis with 760 mL * Type and screen completed A/R: * We'll transfuse 2 PRBCs each over 4 hours * Monitor for pulmonary congestion. Patient may require single dose of furosemide 20 mg IV 1
--- NOTE | 2016-08-05 07:44 | PN- Housestaff ---
[facility] 08/05/16 0744: Subjective Follow-up For: Breast cancer with metastasis Pleural effusion Tele-Events Since Last Visit: Off monitor Subjective: Patient seen and examined this morning. She is lying comfortably in bed in no acute distress, denies any complaints. Has been afebrile, blood pressure and other vitals remained within normal limits Review of Systems Constitutional: Denies: chills, fever. Cardiovascular: Denies: chest pain, palpitations. Respiratory: Denies: cough, short of breath, sputum production. Gastrointestinal: Denies: abdominal pain, constipation, diarrhea, nausea, vomiting. Genitourinary: Denies: dysuria, frequency. Objective Last 24 Hrs of Vital Signs/I&O Vital Signs Date Time Temp Pulse Resp B/P Pulse O2 O2 Flow FiO2 Ox Delivery Rate 08/05 0807 98.8 60 20 120/60 96 Nasal 1.0L Cannula 08/05 0000 95 Nasal 2.0L Cannula 08/04 2199 98.2 65 20 122/64 96 Nasal 2.0L Cannula 08/04 1616 98.7 62 20 112/50 97 Nasal 1.0L Cannula 08/04 1600 97 Nasal 2.0L Cannula Intake & Output 08/05 1600 08/05 0800 08/05 0000 Intake Total 240 725 Output Total 400 525 Balance -160 200 Intake, Blood 325 Product Intake, Oral 240 400 Output, Urine 400 525 Physical Exam General Appearance: Alert, Oriented X3, Cooperative, No Acute Distress Cardiovascular: Regular Rate, Normal S1, Normal S2 Lungs: bilateral decreased air entry Abdomen: Normal Bowel Sounds, Soft, No Tenderness Extremities: No Clubbing, No Cyanosis, No Edema Current Medications: Current Medications Sig/Dhara Start time Last Medication Dose Route Stop Time Status Admin Acetaminophen 650 MG Q6P PRN 08/01 1700 AC PO Acetaminophen/ 1 TAB Q6P PRN 08/01 170 AC Hydrocodone Bitart PO Apixaban 5 MG BID 08/03 2200 AC 08/04 PO 2129 Atorvastatin Calcium 10 MG 1700 08/02 1700 AC 08/04 PO 1628 Ferrous Sulfate 325 MG TID 08/02 1000 DC 08/03 PO 1708 Furosemide 40 MG DAILY 08/02 1000 AC 08/04 PO 0939 Metoprolol Succinate 100 MG DAILY 08/02 1000 AC 08/04 PO 0939 Morphine Sulfate 2 MG Q4P PRN 08/01 1700 AC IV Omeprazole 40 MG DAILY AC 08/02 0700 AC 08/04 PO 0643 Ondansetron HCl 4 MG ONCE ONE 08/04 1130 DC IV 08/04 1131 Potassium Chloride 10 MEQ DAILY 08/02 1000 AC 08/04 PO 0939 Last 24 Hrs of Lab/Gavino Results Last 24 Hrs of Labs/Mics: Laboratory Tests 08/05/16 0710: Anion Gap 4 L, Estimated GFR > 60, BUN/Creatinine Ratio 26.3 H, CBC w Diff NO MAN DIFF REQ, RBC 4.28, MCV 76.4 L, MCH 24.4 L, RDW 17.3 H, MPV 8.5, Gran % 67.8, Lymphocytes % 15.3 L, Monocytes % 13.6 H, Eosinophils % 2.8, Basophils % 0.5, Absolute Granulocytes 3.9, Absolute Lymphocytes 0.9 L, Absolute Monocytes 0.8 H, Absolute Eosinophils 0.2, Absolute Basophils 0, PUBS MCHC 31.9 L 08/04/16 1024: Anion Gap 5, Estimated GFR > 60, BUN/Creatinine Ratio 23.8, Phosphorus 2.8, Magnesium 1.7, CBC w Diff NO MAN DIFF REQ, RBC 3.06 L, MCV 73.3 L, MCH 22.6 L , RDW 16.7 H, MPV 8.5, Gran % 68.0, Lymphocytes % 18.2 L, Monocytes % 12.5 H, Eosinophils % 0.6, Basophils % 0.7, Absolute Granulocytes 3.7, Absolute Lymphocytes 1.0 L, Absolute Monocytes 0.7 H, Absolute Eosinophils 0, Absolute Basophils 0, PUBS MCHC 30.8 L Assessment/Plan Assessment: Ms Kern is a 76 years old female with past medical history significant for Breast Ca (ER+; Her2 neg; Stage 4 w/ bony mets, s/p RCT s/p mastectomy 2010 on ER antagoinis-Fulvestrant), previous radiation therapy for vertebral body metastasis, right sided chronic pleural effusion, PE and paroxysmal Afib on Eliqus. Patient presented with chief complaint of sending shortness of breath. Problem list #Shortness of breath #Breast cancer with metastasis #Paroxysmal atrial fibrillation #Previous history of PE #Microcytic anemia CTA 08/01/16 IMPRESSION: 1. Adequate contrast opacification of the pulmonary arterial vasculature, without evidence of pulmonary embolism to the level of the segmental pulmonary arteries. Evaluation of the subsegmental pulmonary arteries is limited given interval enlargement of a previously identified right-sided pleural effusion. 2. As noted above, there has been interval enlargement of a previously identified moderate right-sided pleural effusion, now large in volume. There is overlying right basilar compressive atelectasis. A triangular wedge-shaped opacity within the right middle lobe could reflect subsegmental atelectasis although underlying consolidation secondary to superimposed infection not be excluded in the appropriate clinical setting. 3. Enlarged and heterogeneous left thyroid lobe, corresponding to the patient's previously visualized thyroid goiter. VTE: Negative for pulmonary embolism. #Shortness of breath -Patient presented with history of worsening shortness of breath. Recently she started to have shortness of breath on rest -Could be due to multiple factors; chronic pleural effusion (recent CXR suggest increased pleural effusion from the prior test 06/22) and/or metastatic breast cancer and/or microcytic anemia -Hematology oncology Dr. marie consultation was obtained -Pulmonology consultation Herminio Gore MD was obtained -Continue Eliquis 5 mg twice a day -Ultrasound-guided thoracocentesis diagnostic and therapeutic 08/03, 50 mL was removed t -According to light's criteria, the pleural protein to serum protein ratio is 0.4 and pleural LDH to serum LDH ratio is 1.1 which met the criteria for exudative pleural effusion most probably related to the HX of breast cancer with metastasis -Cytology results on Saturday -Patient has history of large hiatal hernia, continue proton pump inhibitor and keep elevated bed position -Last echo August 2015 although was limited test, didn't show any abnormal right or left ventricular function, no appreciable pulmonary hypertension, mild left ventricular hypertrophy, ejection fraction 55-60% -CTA negative for PE -Regarding Decadron, Dr. Hartmann was contacted and no data in his office for Decadron. The pharmacy was contacted and patient was on Decadron in July and August 2015 -Continue frusemide 40 mg daily by mouth -PT evaluation tomorrow -Strict I/O after blood transfusion -Patient is on home oxygen when necessary #Paroxysmal atrial fibrillation -Continue metoprolol succinate 100 mg by mouth daily -Discontinue IV heparin drip -Continue Eliquis 5 mg twice a day #Microcytic anemia -Ferrous sulfate 325 3 times a day milligram daily -H&H 6.9/22.4 -Patient received 2 units of RBC 08/04 #Hypertension and hyperlipidemia -Continue atorvastatin 10 mg daily -Metoprolol succinate 100 mg daily -Patient is not taking hydrochlorothiazide and lisinopril anymore -DVT prophylaxis Eliquis -Diet regular diet -Code full -Consultation pulmonology, heme oncology, PT evaluation Problem List: 1. Dyspnea on exertion 2. Pleural effusion 3. Metastatic breast cancer Pain Ratin Pain Location: None Pain Goal: Remain pain free Pain Plan: Morphine for severe pain, Vicodin for moderate pain, Tylenol for mild pain Tomorrow's Labs & Rationales: CBC for H&H monitoring posttransfusion BEP for lites monitoring BARBARA JARAMILLO MD 08/05/16 1913: Attending MD Review Statement Attending Statement Attending MD Statement: examined this patient, discuss w/resident/PA/SYSTEMS ADMIN, agreed w/resident/PA/SYSTEMS ADMIN, reviewed EMR data (avail), discussed with nursing, amended to note Attending Assessment/Plan: The patient was seen and discussed with house staff. Still poor po intake, although nausea is better. Need to assess pulse ox with ambulation. Needs PT. Await cytology report from pleural fluid.
[2016-08-05 08:07] VITALS: BP 120/60
[2016-08-05 08:33] LABS: ABSOLUTE EOSINOPHIL COUNT 0.2 /CUMM (0.0-0.7); ABSOLUTE GRANULOCYTE CT 3.9 /CUMM (1.4-6.5); ABSOLUTE MONOCYTE COUNT 0.8 /CUMM (0.10-0.60); EOSINOPHIL % 2.8 % (0-5); MEAN CORPUSCULAR HGB CONC 31.9 G/DL (33.0-37.0); MEAN PLATELET VOLUME 8.5 FL (7.4-10.4); WHITE BLOOD CELL COUNT 5.7 /CUMM (4.8-10.8)
[2016-08-05 09:12] LABS: ABSOLUTE BASOPHIL COUNT 0 /CUMM (0.0-0.2); ABSOLUTE LYMPH COUNT 0.9 /CUMM (1.2-3.4); BASOPHIL % 0.5 % (0.0-2.0); GRANULOCYTE % 67.8 % (42.2-75.2); MEAN CORPUSCULAR HGB 24.4 PG (27.0-31.0); MEAN CORPUSCULAR VOLUME 76.4 FL (81.0-99.0); PLATELET COUNT 224 /CUMM (130-400); RBC DISTRIBUTION WIDTH 17.3 % (11.5-14.5)
[2016-08-05 09:16] LABS: HEMATOCRIT 32.7 % (37-47); RED BLOOD CELL CT 4.28 /CUMM (4.20-5.40)
[2016-08-05 16:00] VITALS: BP 124/52
--- NOTE | 2016-08-05 19:19 | NUR ---
ALERT AND ORIENTED X 3. VITAL SIGNS STABLE 1899 AMBULATORY O2SAT ROOM AIR 96% 1919 O2SAT ROOM AIR DROPPED TO 89% WHEN SLEEPING 1919 PATIENT BACK ON 1L OXYGEN VIA NASAL CANNULA
[2016-08-05 21:00] VITALS: BP 126/64
--- NOTE | 2016-08-05 21:19 | NUR ---
PT ARRIVED TO FLOOR AT [facility]. 2029 FROM TELE FLOOR. PT A&O X 3. O2 IN PLACE 1L, SAT 95%. LUNGS DIM. NO C/O PAIN. BED LOW, LOCKED, CALL COLEMAN WITHIN REACH. MONITOR FOR SIGNS OF RESPIRATORY DISTRESS.
[2016-08-06 06:00] VITALS: BP 132/60
--- NOTE | 2016-08-06 07:26 | PN- Housestaff ---
TAINA ALONSO 08/06/16 0725: Subjective Follow-up For: - pleural effusion Subjective: She was comfortable this morning. Abdomen afebrile overnight. Currently on 1 L oxygen-nasal cannula (96-97% oxygen saturation). Review of Systems Constitutional: Reports: see HPI. Objective Last 24 Hrs of Vital Signs/I&O Vital Signs Date Time Temp Pulse Resp B/P Pulse O2 O2 Flow FiO2 Ox Delivery Rate 08/06 0600 98.1 67 18 132/60 96 Nasal Cannula 08/06 0000 Nasal 1.0L Cannula 08/05 2100 97.7 68 16 126/64 95 Nasal 1.0L Cannula 08/05 1600 95 Nasal 1.0L Cannula 08/05 1600 98.3 68 20 124/52 95 Nasal 1.0L Cannula 08/05 1021 124/70 08/05 0807 98.8 60 20 120/60 96 Nasal 1.0L Cannula 08/05 0800 95 Nasal 2.0L Cannula Intake & Output 08/06 0800 08/06 0000 08/05 1600 Intake Total 30 400 Output Total 800 Balance 30 -400 Intake, Oral 30 400 Output, Urine 800 Physical Exam General Appearance: No Acute Distress Other Physical Findings: General Exam: AAOx3, No acute distress, Skin: No rashes, no breakdown HEENT: PERRLA, EOMI Neck: Supple, No JVD No cervical lymphadenopathy CVS: Reg Rate, Normal S1,S2, No MGR Resp: Low air entry on right side, no rhonchi or rales. Abdomen: Soft, No tenderness, Normal Bowel Sounds Neuro: Normal Speech, Strength 5/5 b/l x 4 extremities, Sensation intact, CN III -XII NL, Reflexes 2+ Extremities: No cyanosis, pedal edema Current Medications: Current Medications Sig/Dhara Start time Last Medication Dose Route Stop Time Status Admin Acetaminophen 650 MG Q6P PRN 08/01 1700 AC PO Acetaminophen/ 1 TAB Q6P PRN 08/01 1700 AC Hydrocodone Bitart PO Apixaban 5 MG BID 08/030 AC 08/05 PO 2155 Atorvastatin Calcium 10 MG 1700 08/02 1700 AC 08/05 PO 1610 Furosemide 40 MG DAILY 08/02 1000 AC 08/05 PO 1020 Metoprolol Succinate 100 MG DAILY 08/02 1000 AC 08/05 PO 1021 Morphine Sulfate 2 MG Q4P PRN 08/01 1700 AC IV Omeprazole 40 MG DAILY AC 08/02 0700 AC 08/06 PO 0538 Potassium Chloride 10 MEQ DAILY 08/02 1000 AC 08/05 PO 1021 Last 24 Hrs of Lab/Gavino Results Last 24 Hrs of Labs/Mics: Laboratory Tests 08/06/16 0705: Sodium Pending, Potassium Pending, Chloride Pending, Carbon Dioxide Pending, Anion Gap Pending, BUN Pending, Creatinine Pending, BUN/Creatinine Ratio Pending , Phosphorus Pending, Magnesium Pending, CBC w Diff Pending, WBC Pending, RBC Pending, Hgb Pending, Hct Pending, MCV Pending, MCH Pending, RDW Pending, Plt Count Pending, MPV Pending, PUBS MCHC Pending Assessment/Plan Assessment: Ms Kern is a 76 years old female with past medical history significant for Breast Ca (ER+; Her2 neg; Stage 4 w/ bony mets, s/p RCT s/p mastectomy 2010 on ER antagoinis-Fulvestrant), previous radiation therapy for vertebral body metastasis, right sided chronic pleural effusion, PE and paroxysmal Afib on Eliqus. She was being evaluated for shortness of breath. She was managed on telemetry floor and was transferred to [facility] on 08/06/2016. Differential diagnoses: #1 malignant pleural effusion #2 CHF Below is the problem list and plan: #1 shortness of breath- currently on 1 L oxygen. Ultrasound-guided thoracentesis was done, which revealed pleural fluid suggestive of a mixed picture. Protein-pleural fluid/serum less than 0.5, LDH-pleural fluid/serum greater than 0.6. Await cytology results. Findings suggestive of malignant pleural effusion. Repeat chest x-ray to assess resolution of pleural fluid, ordered. Herminio Gore MD advising. Last echo revealed LVEF 50-60%. Continue to monitor closely. May consider tap as an outpatient for symptomatic relief. #2 atrial fibrillation- the patient currently on apixaban, after being kept on IV heparin for the purpose of the procedure. Changed anticoagulation to Lovenox , at 1.5 mg per KG body weight dose which translates to 120 mg per day. Confirm the dose with the pharmacy. #3 anemia-acute drop in H&H was found on 08/04/2016. Check stool guaiac. So far 2 PRBCs were transfused. Recheck CBC in the a.m. Iron sulfate 325 by mouth daily. 4. mental health- mirtazapine has been added this p.m. #5 pain management-currently on Vicodin, Tylenol and morphine. The patient is currently not on any Decadron, as confirmed by the previous team. #5 DVT prophylaxis-Lovenox. Problem List: 1. Dyspnea on exertion 2. Anemia 3. Atrial fibrillation with normal ventricular rate 4. Pleural effusion Pain Ratin Pain Location: Back Pain Goal: Pain 4 or less Pain Plan: tylenol prn Tomorrow's Labs & Rationales: cbc- H&H monitr. pt has anemia JUSTIN OLIVARES MD 08/06/16 1710: Attending MD Review Statement Attending Statement Attending MD Statement: examined this patient, discuss w/resident/PA/PAINTING SUPERVISOR, agreed w/resident/PA/PAINTING SUPERVISOR, reviewed EMR data (avail) -Code full -Consultation pulmonology, heme oncology, PT evaluation
--- NOTE | 2016-08-06 07:32 | PN- Oncology ---
Subjective Subjective: Complaining of generalized fatigue, slightly less short of breath Review of Systems: 12 point review of systems unchanged Objective Vital Signs and I&Os Vital Signs Date Time Temp Pulse Resp B/P Pulse O2 O2 Flow FiO2 Ox Delivery Rate 08/06 0600 98.1 67 18 132/60 96 Nasal Cannula 08/06 0000 Nasal 1.0L Cannula 08/05 2100 97.7 68 16 126/64 95 Nasal 1.0L Cannula 08/05 1600 95 Nasal 1.0L Cannula 08/05 1600 98.3 68 20 124/52 95 Nasal 1.0L Cannula 08/05 1021 124/70 08/05 0807 98.8 60 20 120/60 96 Nasal 1.0L Cannula 08/05 0800 95 Nasal 2.0L Cannula Intake & Output 08/06 0800 08/06 0000 08/05 1600 08/05 0800 08/05 0000 08/04 1600 Intake Total 30 400 240 725 695 Output Total 800 400 525 500 Balance 30 -400 -160 200 195 Intake, Blood 325 200 Product Intake, IV 30 Intake, Oral 30 400 240 400 465 Output, Urine 800 400 525 500 Patient 186 lb Weight Gen.: in NAD, lying flat ENT: Sclera anicteric Chest: Normal respiratory effort, decrease breath sounds right hemithorax Cor: irreg, no extra sounds Abdomen: Soft, bowel sounds present, no tenderness, no rebound Extremities: Without clubbing, cyanosis, or asymmetric edema Neurology: Alert and oriented 3, no gross deficit Current Medications: Current Medications Sig/Dhara Start time Last Medication Dose Route Stop Time Status Admin Acetaminophen 650 MG Q6P PRN 08/01 1700 AC PO Acetaminophen/ 1 TAB Q6P PRN 08/01 1700 AC Hydrocodone Bitart PO Apixaban 5 MG BID 08/03 2200 AC 08/05 PO 2155 Atorvastatin Calcium 10 MG 1700 08/02 1700 AC 08/05 PO 1610 Furosemide 40 MG DAILY 08/02 1000 AC 08/05 PO 1020 Metoprolol Succinate 100 MG DAILY 08/02 1000 AC 08/05 PO 1021 Morphine Sulfate 2 MG Q4P PRN 08/01 1700 AC IV Omeprazole 40 MG DAILY AC 08/02 0700 AC 08/06 PO 0538 Potassium Chloride 10 MEQ DAILY 08/02 1000 AC 08/05 PO 1021 Results Last 24 Hours of Lab Results: Laboratory Tests 01/30 0705 Chemistry Sodium Pending Potassium Pending Chloride Pending Carbon Dioxide Pending Anion Gap Pending BUN Pending Creatinine Pending BUN/Creatinine Ratio Pending Phosphorus Pending Magnesium Pending Hematology CBC w Diff Pending WBC Pending RBC Pending Hgb Pending Hct Pending MCV Pending MCH Pending RDW Pending Plt Count Pending MPV Pending PUBS MCHC Pending Assessment/Plan Assessment/Recommendations: 1. Stage IV breast cancer 2. Right pleural effusion-await cytology, if indeed this represents metastatic breast cancer, some discussion regarding a Pleurx catheter needs to be had 3. Iron deficiency anemia-status post red cell transfusion Continue iron replacement therapy Check stools for occult blood
[2016-08-06 07:53] LABS: ABSOLUTE BASOPHIL COUNT 0 /CUMM (0.0-0.2); ABSOLUTE EOSINOPHIL COUNT 0.3 /CUMM (0.0-0.7); ABSOLUTE GRANULOCYTE CT 4.2 /CUMM (1.4-6.5); ABSOLUTE MONOCYTE COUNT 0.9 /CUMM (0.10-0.60); BASOPHIL % 0.7 % (0.0-2.0); EOSINOPHIL % 4.1 % (0-5); GRANULOCYTE % 65.3 % (42.2-75.2); HEMATOCRIT 34.8 % (37-47); MEAN CORPUSCULAR HGB 24.5 PG (27.0-31.0); MEAN CORPUSCULAR HGB CONC 32.2 G/DL (33.0-37.0); MEAN CORPUSCULAR VOLUME 75.9 FL (81.0-99.0); MEAN PLATELET VOLUME 8.1 FL (7.4-10.4); PLATELET COUNT 232 /CUMM (130-400); RBC DISTRIBUTION WIDTH 17.8 % (11.5-14.5); RED BLOOD CELL CT 4.59 /CUMM (4.20-5.40); WHITE BLOOD CELL COUNT 6.4 /CUMM (4.8-10.8)
--- NOTE | 2016-08-06 10:28 | PN- Pulmonary ---
Subjective HPI/Critical Care Issues: Complaining of generalized fatigue, slightly less short of breath Review of Systems: 12 point review of systems unchanged Still has difficulty breathing on excertion Objective Current Medications: Current Medications Sig/Dhara Start time Last Medication Dose Route Stop Time Status Admin Acetaminophen 650 MG Q6P PRN 08/01 1700 AC PO Acetaminophen/ 1 TAB Q6P PRN 08/01 1700 AC Hydrocodone Bitart PO Apixaban 5 MG BID 08/03 2200 AC 08/05 PO 2155 Atorvastatin Calcium 10 MG 1700 08/02 1700 AC 08/05 PO 1610 Docusate Sodium 100 MG DAILY PRN 08/06 0930 AC PO Furosemide 40 MG DAILY 08/02 1000 AC 08/05 PO 1020 Metoprolol Succinate 100 MG DAILY 08/02 1000 AC 08/05 PO 1021 Mirtazapine 7.5 MG AT BEDTIME 08/06 2200 AC PO Morphine Sulfate 2 MG Q4P PRN 08/01 1700 AC IV Omeprazole 40 MG DAILY AC 08/02 0700 AC 08/06 PO 0538 Potassium Chloride 10 MEQ DAILY 08/02 1000 AC 08/05 PO 1021 Senna/Docusate Sodium 1 TAB BID PRN 08/06 0930 AC PO Vital Signs & I&O Last 24 Hrs of Vitals and I&O: Vital Signs Date Time Temp Pulse Resp B/P Pulse O2 O2 Flow FiO2 Ox Delivery Rate 08/06 0600 98.1 67 18 132/60 96 Nasal Cannula 08/06 0000 Nasal 1.0L Cannula 08/05 2100 97.7 68 16 126/64 95 Nasal 1.0L Cannula 08/05 1600 95 Nasal 1.0L Cannula 08/05 1600 98.3 68 20 124/52 95 Nasal 1.0L Cannula Intake & Output 08/06 1600 08/06 0800 08/06 0000 Intake Total 240 30 Output Total Balance 240 30 Intake, Oral 240 30 Number 0 Bowel Movements Impression/Plan Impression/Plan Impression/Plan: Physical Exam General Appearance: well developed/nourished, alert, awake, anxious, mild distress, obese Head: atraumatic, normal appearance Eyes: Bilateral: PERRL, EOMI, pale conjunctivae. Ears, Nose, Throat: normal pharynx, normal ENT inspection, moist mucus membranes Neck: normal inspection, supple, full range of motion, no midline tenderness Respiratory: chest non-tender, no respiratory distress, decreased breath sounds (right), rales (right) Cardiovascular: normal peripheral pulses, irregularly irregular Peripheral Pulses: 4+ carotid (R), 4+ carotid (L) Gastrointestinal: normal bowel sounds, soft, non-tender, no organomegaly Extremities: normal inspection, normal capillary refill, normal range of motion, no edema Neurologic/Psych: no motor/sensory deficits, awake, alert, oriented x 3, normal mood/affect, bottle hop II-XII nml as tested Skin: intact, normal color Lymphatic: no anterior cervical esteban IMPRESSION This is a lady with the hypertension, hyperlipidemia, paroxysmal atrial fibrillation, previous history of pulmonary embolism with no new pulmonary embolism at this time (neg cta) who is on eloquis, 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 Her issues include * Pleural effusion in a lady with metastatic breast ca now s/p tap with ongoing dyspnea * Significant history of pulmonary embolism in the past now on eloquis with no active PE. Patient is on eloquis for atrial fibrillation as well as for venous thromboembolism rx and prophylaxix * Paroxymsmal atrial fibrillation, hypertension, ischemic heart on appropriate medications. Recently, her Lasix has been held with the no clinical evidence suggestive of acute pulmonary edema. However, her proBNP is elevated she may have a component of acute on chronic diastolic heart failure. * Breast cancer, with bone (spine aswell) on chemotherapy. * Hypertension, hyperlipidemia, previous GERD, stable. 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 * Keep the head of bed elevated as she has a pretty large hiatal hernia. * Continue her proton pump inhibitor. * Continue her blood pressure medications. * Rpt cxr today, follow hct Can be dcd today with follow up soon We will follow closely
--- NOTE | 2016-08-06 12:24 | NUR ---
PT SATTING 89% ON ROOM AIR, REFUSES AMBULATION WITHOUT OXYGEN DUE TO SHORTNESS OF BREATH. INCREASED SOB WITH SMALL EXERTION SUCH SITTING UP IN BED. PT PLACED BACK ON 1L NC.
[2016-08-06 13:34] VITALS: BP 130/70
--- NOTE | 2016-08-06 13:36 | Discharge Summary ---
See Addendum Visit Information Visit Dates Admission Date: 08/01/16 Discharge Date: 08/07/2016 Hospital Course Course Attending Physician: JUSTIN OLIVARES MD Primary Care Physician: Reema PIMENTEL MD Other Care Providers: Dr. Eubanks - Oncology Consulting Request: 1 Consulting Specialty: Pulmonary Disease Consulting Physician: Dr. Gore Reason for Consult: Dyspnea / Pleural effusion Consulting Request: 2 Consulting Specialty: Hematology/Oncology Consulting Physician: Dr. 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 She had been on oral furosemide therapy for lower extremity edema and this had been discontinued by PCP 4 weeks ago as her edema had resolved. She denied any chest pain, palpitations, fever, chills, cough, or other symptoms. She had known moderate size Rt. pleural effusion from . She has been following Dr. Eubanks/Dr. [facility], and she was on IM Faslodex monthly (off tamoxifen, dexamethasone). VS: T 96.9, P 74, R 20, BP 133/59, PO 90% RA at rest and 94% on 2L nasal HEENT: eyes- PERRLA, EOMI, oral- moist mucosa w/o lesions Neck: no adenopathy, JVD or bruits Chest: absent breath sounds right lower lung field, otherwise clear Cardiovascular: RRR, nl S1, S2 w/o murm Abd: BS+, soft, non-tender, - masses or HSM Ext: no edema, pulses 2+ Neuro: alert & oriented x 3, non-focal Imaging tests - CXR: Moderate right pleural effusion, likely increased from prior, with adjacent basilar opacification suggestive of atelectasis. Hiatal hernia. - CTA: 1. Adequate contrast opacification of the pulmonary arterial vasculature, without evidence of pulmonary embolism to the level of the segmental pulmonary arteries. Evaluation of the subsegmental pulmonary arteries is limited given interval enlargement of a previously identified right-sided pleural effusion. 2. As noted above, there has been interval enlargement of a previously identified moderate right-sided pleural effusion, now large in volume. There is overlying right basilar compressive atelectasis. A triangular wedge-shaped opacity within the right middle lobe could reflect subsegmental atelectasis although underlying consolidation secondary to superimposed infection not be excluded in the appropriate clinical setting. 3. Enlarged and heterogeneous left thyroid lobe, corresponding to the patient's previously visualized thyroid goiter. VTE: Negative for pulmonary embolism. Patient was admitted to tele floor and transferred to general medicine floor due to following problem lists; 1. Acute dyspnea secondary to increasing Rt. pleural effusion: CTA was negative for recurrent pulmonary embolism. PO eliquis was held for 48 hours and she was on IV heparin anticipating IR thoracentesis. On 08/03 she had successful ultrasound-guided thoracentesis of 760ml of fluid. Serum LDH 322/Pleural LDH 364, serum protein 5.9/pleural protein 2.9 suggesting exudate. Cytology results were pending. She was given gentle diuresis with IV and po lasix. Last echo August 2015 was limited test, didn't show any abnormal right or left ventricular function, no appreciable pulmonary hypertension, mild left ventricular hypertrophy, ejection fraction 55-60%. Follow up CXR showed improvement of Rt. pleural effusion. Patient needs to follow up Dr. Gore as an outpatient and she'll continue SC lovenox anticipating PleurX catheter if needed. 2. Paroxysmal A.fib: Rate was well controlled with po metoprolol xl 100mg daily. She was on IV heparin initially and it was switched to SC lovenox 120mg daily. 3. Hx of Pulmonary embolism (with malignancy): As above, her eliquis was held with IV heparin drip initially and it was switched to SC lovenox 120mg daily. 4. Acute on chronic microcytic anemia: Hb/Hct decreased from 8.0/25.8 to 6.9/ 22.4 on 08/04 with anticoagulation. 2PRBCs were given on 08/04 and Hb/Hct improved to 10.4/32.7 on 08/05. Patient's guiac was positive. Ferrous sulfate 325 mg daily was given. Patient needs to follow up Dr. Eubanks regarding anemia with anticoagulation. 5. Hiatal hernia: Please keep head of bed elevated as she has a pretty large hiatal hernia. 6. GERD: We continued proton pump inhibitor. 7. Stage 4 breast cancer with bone metastasis: Patient needs to follow up Dr. Eubanks regarding further management. Regarding Dexamethasone, her pharmacy was contacted and patient was on Decadron in July and August 2015. 8. HLD: We continue home dose of statin. 9. Depression: With diagnosis of stage 4 metastatic cancer, patient was depressed. Psychiatry consult recommended PO mirtazapine 7.5mg at night for depression/loss of appetite. DVT ppx: SC lovenox, full code. Allergies: Coded Allergies: NO KNOWN ALLERGIES (08/09/15) Significant Procedures: 08/03/16: ultrasound-guided thoracentesis of 760 mL of fluid. Pleural : pH 7.33, total protein 2.9, LDH 364 Serum: total protein 5.9, LDH 322 Pertinent Lab Results: Hb/Hct : 6.9/22.4 (08/04)-> 10.4/32.7 (08/05) after 2PRBC transfusion Disposition Summary Disposition Principal Diagnosis: Rt. pleural effusion with metastatic breast cancer s/p thoracentesis Acute on chronic microcytic anemia s/p 2 PRBC transfusion Additional Diagnosis: Paroxysmal A.fib (Eliquis on hold) Hx of pulmonary embolism HTN HLD GERD Hiatal hernia Stage 4 breast cancer with bone metastasis Depression Discharge Disposition: SNF Discharge Instructions General Discharge Information Code Status: Full Code Patient's Diet: Regular diet Patient's Activity: Increase activity as tolerated Follow-Up Instructions/Appts: -Please follow up with your PCP within 1 week after discharge -Please follow-up with supervisor international reservations Herminio Gore MD after discharge -Please get chest x-ray next week before your appointment with Dr. Gore. A prescription for chest x-ray will be provided upon discharge -Please follow-up with Dr. Eubanks after discharge Medications at Discharge Discharge Medications: Stop taking the following medications: Apixaban (Eliquis) 5 MG TAB ORAL SEE INSTRUCTIONS Days = 30 Potassium Chloride (Potassium Chloride) 10 MEQ TAB.ER.PRT ORAL DAILY Qty = 90 Continue taking these medications: Simvastatin (Zocor) 10 MG TABLET 1 Tablet ORAL Every night Comments: ATORVASTATIN (LIPITOR) GIVEN. LAST DOSE GIVEN ON 08/12/15 AT 9:30AM Pantoprazole Sodium (Protonix) 40 MG TAB 40 Milligram ORAL DAILY Qty = 30 Comments: NOT GIVEN IN HOSPITAL Metoprolol Succ XL (Toprol XL) 100 MG TAB.ER.24H 1 Tablet ORAL DAILY Start taking the following new medications: Enoxaparin Sodium (Lovenox) 60 MG/0.6 ML SYRINGE 120 Milligram Inject into fatty tissue DAILY Days = 30 No Refills Mirtazapine (Remeron) 15 MG TABLET 7.5 Milligram ORAL AT BEDTIME Days = 30 No Refills Docusate Sodium (Docusate Sodium) 100 MG CAPSULE 100 Milligram ORAL DAILY as needed for CONSTIPATION Days = 30 No Refills Sennosides/Docusate Sodium (Senna Plus Tablet) 8.6 MG-50 MG TABLET 1 Tablet ORAL TWICE DAILY as needed for CONSTIPATION Days = 30 No Refills Potassium Chloride (Klor-Con 10) 10 MEQ TABLET.ER 20 Millequivalent ORAL DAILY Days = 30 No Refills Furosemide (Furosemide) 20 MG TABLET 20 Milligram ORAL DAILY Days = 30 No Refills Ferrous Sulfate (Ferrous Sulfate) 325 MG (65 MG IRON) TABLET 1 Tablet ORAL THREE TIMES DAILY Qty = 60 No Refills Instructions: Please take this medicine on an empty stomach Copies To: ELISE KRISHNA,JUSTIN; JHON KRISHNA,[facility] HOSPITALMargareth; YOU KRISHNA,ANDERSON Be; LOREN KRISHNA,[facility]
--- NOTE | 2016-08-06 14:26 | Discharge Summary ---
Hospital Course Course Consulting Request: Consulting Specialty: Hematology/Oncology Consulting Physician: Dr. Eubanks Reason for Consult: Stage 4 breast cancer with bone metastasis Allergies: Coded Allergies: NO KNOWN ALLERGIES (08/09/15) Discharge Instructions Medications at Discharge Discharge Medications: Continue taking these medications: Simvastatin (Zocor) 10 MG TABLET 1 Tablet ORAL Every night Comments: ATORVASTATIN (LIPITOR) GIVEN. LAST DOSE GIVEN ON 08/12/15 AT 9:30AM Pantoprazole Sodium (Protonix) 40 MG TAB 40 Milligram ORAL DAILY Qty = 30 Comments: NOT GIVEN IN HOSPITAL Apixaban (Eliquis) 5 MG TAB 1 Tablet ORAL SEE INSTRUCTIONS Days = 30 Instructions: TAKE 2 TAB TWICE DAILY FOR 5 DAYS THAN 1 TAB TWICE DAILY Comments: LAST DOSE GIVEN ON 08/12/15 AT 09:30AM Potassium Chloride (Potassium Chloride) 10 MEQ TAB.ER.PRT 1 Tablet ORAL DAILY Qty = 90 Start taking the following new medications: Ferrous Sulfate (Ferrous Sulfate) 325 MG (65 MG IRON) TABLET 1 Tablet ORAL THREE TIMES DAILY Qty = 60 No Refills Instructions: Please take this medicine on an empty stomach Metoprolol Succ XL (Toprol XL) 100 MG TAB.ER.24H 1 Tablet ORAL DAILY Qty = 30 No Refills Furosemide (Lasix) 40 MG TABLET 1 Tablet ORAL DAILY Qty = 30 No Refills The following medications have been changed: Old: Metoprolol Succ XL (Toprol Xl 50MG Tab) 50 MG TAB 50 Milligram ORAL DAILY Days = 28 New: Metoprolol Succ XL (Toprol XL) 100 MG TAB.ER.24H 1 Tablet ORAL DAILY Qty = 30
--- NOTE | 2016-08-06 14:27 | Transfer of Care Summary ---
Hospital Course Course Hospital Course: Ms Kern is a 76 years old female with past medical history significant for Breast Ca (ER+; Her2 neg; Stage 4 w/ bony mets, s/p RCT s/p mastectomy 2010 on ER antagoinis-Fulvestrant), previous radiation therapy for vertebral body metastasis, right sided chronic pleural effusion, PE and paroxysmal Afib on Eliqus. Patient presented with chief complaint of sending shortness of breath. She was managed on the telemetry floor and then shifted to [facility] on 08/06/16. Problem list #Shortness of breath #Breast cancer with metastasis #Paroxysmal atrial fibrillation #Previous history of PE #Microcytic anemia #Shortness of breath -Patient presented with history of worsening shortness of breath. Recently she started to have shortness of breath on rest -We evaluated for multiple contributing factors; chronic pleural effusion ( recent CXR suggest increased pleural effusion from the prior test 06/22) and/or metastatic breast cancer and/or microcytic anemia -Hematology oncology Dr. marie consultation was obtained, Pulmonology consultation Herminio Gore MD was obtained -CTA negative for PE -Ultrasound-guided thoracocentesis diagnostic and therapeutic 08/03, 750 mL was removed -According to light's criteria, the pleural protein to serum protein ratio is 0.4 and pleural LDH to serum LDH ratio is 1.1 which met the criteria for exudative pleural effusion most probably related to the HX of breast cancer with metastasis -Cytology results were pending and are expected on Saturday -Patient has history of large hiatal hernia, continue proton pump inhibitor and keep elevated bed position -Last echo August 2015 although was limited test, didn't show any abnormal right or left ventricular function, no appreciable pulmonary hypertension, mild left ventricular hypertrophy, ejection fraction 55-60% -Regarding Decadron, Dr. Hartmann was contacted and no data in his office for Decadron. The pharmacy was contacted and patient was on Decadron in July and August 2015 -Continued frusemide 40 mg daily by mouth -PT evaluation -Strict I/O after blood transfusion -Patient is on home oxygen when necessary #Paroxysmal atrial fibrillation -Continued metoprolol succinate 100 mg by mouth daily -Patient was on IV heparin drip prior to thorcocentesis -Continued Eliquis 5 mg twice a day #Microcytic anemia -Ferrous sulfate 325 milligram daily by mouth, patien complained of nusea from this mediaction -H&H was followed everyday -Patient received 2 units of RBC 08/04 #Hypertension and hyperlipidemia -Continued atorvastatin 10 mg daily -Metoprolol succinate 100 mg daily -Patient is not taking hydrochlorothiazide and lisinopril anymore -DVT prophylaxis Eliquis -Diet regular diet -Code full -Consultation pulmonology, heme oncology, PT evaluation Assessment/Plan: Please see the hospital course
--- NOTE | 2016-08-06 15:00 | NUR ---
PHYSICAL THERAPY: Attempted to see Pt this PM; Pt off the floor at XRAY. Will f/u as appropriate.
--- NOTE | 2016-08-06 15:17 | RADIOLOGY REPORT ---
EXAMINATION:\H\ \N\XR CHEST CLINICAL INFORMATION: Status post right thoracentesis. COMPARISON: Chest x-ray 08/03/2016. CT chest 08/01/2016. TECHNIQUE: AP view of the chest was obtained. 2:47 PM FINDINGS: The volume of the right pleural effusion has diminished since the exam of 08/03/2016. By history patient status post right thoracentesis. Residual density remains at the right lung base which is likely due to effusion and probable underlying right basilar atelectasis. There is no pneumothorax. Left lung remains clear. No pulmonary vascular congestion. IMPRESSION: Status post right thoracentesis. Decreased volume of the right pleural effusion since prior exam. No pneumothorax.
[2016-08-06] MEDS ORDERED: REMERON15 M2 PO (16:18)
[2016-08-06] MEDS ORDERED: LOVENOX60 MG/0.1 SC (16:18)
[2016-08-06] MEDS ORDERED: DOCUSATE SODIU100 M3 PO (16:19)
[2016-08-06] MEDS ORDERED: SENNA PLUS TAB1 EACH PO (16:19)
[2016-08-06] MEDS ORDERED: TOPROL XL100 M1 PO (16:22)
--- NOTE | 2016-08-06 20:03 | Cons- Psychiatry ---
Psychiatric Consult Date of Consult: 08/06/16 Reason for Consult: Depression evaluation. Stage IV breast cancer with bone metastasis. History of Present Illness: This is a 76-year-old female brought in by ambulance from the [facility] on 08/01/2016 at 1253 for a evaluation of shortness of breath. She is treated by Dr. Hartmann and Dr. Ford in the cancer Center for stage IV breast cancer with vertebral bone metastasis. Her acute dyspnea secondary to increasing right pleural effusion. Per the discharge summary, the patient was given mirtazapine 7.5 mg PO one time, which she tolerated well. Allergies: Coded Allergies: NO KNOWN ALLERGIES (08/09/15) Current Medications: Current Medications Sig/Dhara Start time Last Medication Dose Route Stop Time Status Admin Acetaminophen 650 MG Q6P PRN 08/01 1700 AC PO Acetaminophen/ 1 TAB Q6P PRN 08/01 1700 AC Hydrocodone Bitart PO Apixaban 5 MG BID 08/03 2200 DC 08/05 PO 2155 Atorvastatin Calcium 10 MG 1700 08/02 1700 AC 08/05 PO 1610 Docusate Sodium 100 MG DAILY PRN 08/06 0930 AC PO Enoxaparin Sodium 120 MG DAILY 08/06 1104 AC 08/06 SC 1433 Furosemide 40 MG DAILY 08/02 1000 AC 08/06 PO 1056 Metoprolol Succinate 100 MG DAILY 08/02 1000 AC 08/06 PO 1057 Mirtazapine 7.5 MG AT BEDTIME 08/06 2200 AC PO Morphine Sulfate 2 MG Q4P PRN 08/01 1700 AC IV Omeprazole 40 MG DAILY AC 08/02 0700 AC 08/06 PO 0538 Patient Medication 1 ED .STK-MED ONE 08/06 1400 AR Teaching ED 08/06 1401 Potassium Chloride 10 MEQ DAILY 08/02 1000 AC 08/06 PO 1056 Senna/Docusate Sodium 1 TAB BID PRN 08/06 0930 AC 08/06 PO 1056 Past History Past Medical History Neurological: NONE EENT: BILATERAL CATARACTS Cardiovascular: hypertension, HIGH CHOLESTEROL Respiratory: pulmonary embolism Gastrointestinal: CHOLECYSTECTOMY Hepatic: NONE Renal: NONE Musculoskeletal: NONE Psychiatric: NONE Endocrine: PARTIAL THYROIDECTOMY 30 YEARS AGO THYROID NODULES 2015 Blood Disorders: anemia Cancer(s): BREAST CA (2009) RIGHT MASTECTOMY 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 She is alert, and receptive to this visit. The patient is alert and oriented. She denies auditory or visual hallucinations, and presents no zack delusions. She reports that she has some depressive symptoms related to being in the hospital, and her diagnosis of breast and bone cancer. She reports that she has some anxiety, related to waiting to learn of any changes in her diagnosis or treatment. She also states that she feels depressed about telling her son in [place], her power of location director, "more bad news." She denies helplessness, hopelessness and worthlessness. 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 The patient reports that her mother 4 years ago at age 89, and left for living spouses, not including the patient's father, who committed suicide. Lab Results: Laboratory Tests 08/06 0705 Chemistry Sodium (137 - 145 mmol/L) 144 Potassium (3.5 - 5.1 mmol/L) 3.9 Chloride (98 - 107 mmol/L) 98 Carbon Dioxide (22 - 30 mmol/L) 39 H Anion Gap (5 - 16) 7 BUN (7 - 17 mg/dL) 20 H Creatinine (0.5 - 1.0 mg/dL) 0.8 Estimated GFR (>60 ml/min) > 60 BUN/Creatinine Ratio (7 - 25 %) 25.0 Phosphorus (2.5 - 4.5 mg/dL) 3.7 Magnesium (1.6 - 2.3 mg/dL) 1.7 Hematology CBC w Diff NO MAN DIFF REQ WBC (4.8 - 10.8 /CUMM) 6.4 RBC (4.20 - 5.40 /CUMM) 4.59 Hgb (12.0 - 16.0 G/DL) 11.2 L Hct (37 - 47 %) 34.8 L MCV (81.0 - 99.0 FL) 75.9 L MCH (27.0 - 31.0 PG) 24.5 L RDW (11.5 - 14.5 %) 17.8 H Plt Count (130 - 400 /CUMM) 232 MPV (7.4 - 10.4 FL) 8.1 Gran % (42.2 - 75.2 %) 65.3 Lymphocytes % (20.5 - 51.1 %) 16.4 L Monocytes % (1.7 - 9.3 %) 13.5 H Eosinophils % (0 - 5 %) 4.1 Basophils % (0.0 - 2.0 %) 0.7 Absolute Granulocytes (1.4 - 6.5 /CUMM) 4.2 Absolute Lymphocytes (1.2 - 3.4 /CUMM) 1.0 L Absolute Monocytes (0.10 - 0.60 /CUMM) 0.9 H Absolute Eosinophils (0.0 - 0.7 /CUMM) 0.3 Absolute Basophils (0.0 - 0.2 /CUMM) 0 PUBS MCHC (33.0 - 37.0 G/DL) 32.2 L Diffential Diagnosis: Depressive disorder NOS Impression: The patient is currently refusing the offer to come to [facility] outpatient psychiatry stating, "I'll be all right." She reports that she did not know that she was taking mirtazapine, an antidepressant, but seemed to accept the idea that it might help stimulate her appetite. She does not wish anyone in the hospital to call her son, her power of location director. She expects to hear from him this evening. She feels that "he is the best," and reports that he took a week off from his work and family a short time ago. Her other support locally is a female friend, who is a retired nurse. The patient reports that her committed suicide by taking a whole bottle of a psychotropic medication, thought to be Seroquel, and she has a poor opinion of outpatient psychiatric treatment. Provisional Treatment Plan: 1. Please continue mirtazapine 7.5 mg PO at bedtime for depression. This may be titrated after one week to 15 mg. 2. Please order vitamin B12 level, as well as thyroid function tests. A low level of vitamin B12, or derangement in thyroid function may impact the patient' s mood. 3. The patient refused to take contact information for [facility] outpatient psychiatry. If she changes her mind, please provide her with our number, . We do not anticipate further visits. Thank you for asking us to participate in Leslie's care. Saul Foreman APRN, pager [phone].
--- NOTE | 2016-08-06 20:29 | NUR ---
CALL PLACED TO [employer] AT THIS TIME TO REVIEW PSYCH RECOMMENDATIONS MADE TODAY FROM NATALIA GRANADOS
[2016-08-06 22:35] VITALS: BP 98/60
--- NOTE | 2016-08-07 05:50 | PN- Housestaff ---
TAINA ALONSO 08/07/16 0548: Subjective Follow-up For: 1. shortness of breath 2. pleural effusion Subjective: Ms Kern was comfortable. She did not have any complaints. She was sleeping, when I walked into her room. Vitals were stable overnight, and she remained afebrile. Nurse notified that the pt had guiac positive stools. Review of Systems Constitutional: Reports: see HPI. Objective Last 24 Hrs of Vital Signs/I&O Vital Signs Date Time Temp Pulse Resp B/P Pulse O2 O2 Flow FiO2 Ox Delivery Rate 08/07 0000 Nasal 1.0L Cannula 08/06 2235 97.6 68 20 98/60 93 Nasal Cannula 08/06 1600 Nasal 1.0L Cannula 08/06 1334 97.7 94 20 130/70 96 Nasal 1.0L Cannula 08/06 1057 80 140/75 08/06 0800 Nasal 1.0L Cannula 08/06 0600 98.1 67 18 132/60 96 Nasal Cannula Intake & Output 08/07 0800 08/07 0000 08/06 1600 Intake Total 600 600 Output Total Balance 600 600 Intake, Oral 600 600 Number 1 Bowel Movements Physical Exam General Appearance: No Acute Distress Other Physical Findings: General Exam: AAOx3, No acute distress, Skin: No rashes, no breakdown HEENT: PERRLA, EOMI Neck: Supple, No JVD No cervical lymphadenopathy CVS: Reg Rate, Normal S1,S2, No MGR Resp: Low air entry on right side, no rhonchi or rales. Abdomen: Soft, No tenderness, Normal Bowel Sounds Neuro: Normal Speech, Strength 5/5 b/l x 4 extremities, Sensation intact, CN III -XII NL, Reflexes 2+ Extremities: No cyanosis, pedal edema. Current Medications: Current Medications Sig/Dhara Start time Last Medication Dose Route Stop Time Status Admin Acetaminophen 650 MG Q6P PRN 08/01 1700 AC PO Acetaminophen/ 1 TAB Q6P PRN 08/01 170 AC Hydrocodone Bitart PO Apixaban 5 MG BID 08/03 2200 DC 08/05 PO 2155 Atorvastatin Calcium 10 MG 1700 08/02 1700 AC 08/06 PO 2117 Docusate Sodium 100 MG DAILY PRN 08/06 0930 AC PO Enoxaparin Sodium 120 MG DAILY 08/06 1104 AC 08/06 SC 1433 Furosemide 40 MG DAILY 08/02 1000 AC 08/06 PO 1056 Metoprolol Succinate 100 MG DAILY 08/02 1000 AC 08/06 PO 1057 Mirtazapine 7.5 MG AT BEDTIME 08/06 2200 AC 08/06 PO 2117 Morphine Sulfate 2 MG Q4P PRN 08/01 1700 AC IV Omeprazole 40 MG DAILY AC 08/02 0700 AC 08/06 PO 0538 Patient Medication 1 ED .STK-MED ONE 08/06 1400 [place] Teaching ED 08/06 1401 Potassium Chloride 10 MEQ DAILY 08/02 1000 AC 08/06 PO 1056 Senna/Docusate Sodium 1 TAB BID PRN 08/06 0930 AC 08/06 PO 1056 Last 24 Hrs of Lab/Gavino Results Last 24 Hrs of Labs/Mics: Laboratory Tests 08/06/16 0705: Anion Gap 7, Estimated GFR > 60, BUN/Creatinine Ratio 25.0, Phosphorus 3.7, Magnesium 1.7, CBC w Diff NO MAN DIFF REQ, RBC 4.59, MCV 75.9 L, MCH 24.5 L, RDW 17.8 H, MPV 8.1, Gran % 65.3, Lymphocytes % 16.4 L, Monocytes % 13.5 H, Eosinophils % 4.1, Basophils % 0.7, Absolute Granulocytes 4.2, Absolute Lymphocytes 1.0 L, Absolute Monocytes 0.9 H, Absolute Eosinophils 0.3, Absolute Basophils 0, PUBS MCHC 32.2 L Assessment/Plan Assessment: Ms Kern is a 76 years old female with past medical history significant for Breast Ca (ER+; Her2 neg; Stage 4 w/ bony mets, s/p RCT s/p mastectomy 2010 on ER antagoinis-Fulvestrant), previous radiation therapy for vertebral body metastasis, right sided chronic pleural effusion, PE and paroxysmal Afib on Eliqus. She was being evaluated for shortness of breath. She was managed on telemetry floor and was transferred to [facility] on 08/06/2016. Imaging updates in the last 24 hrs: 1. CXR- Status post right thoracentesis. Decreased volume of the right pleural effusion since prior exam. No pneumothorax. Differential diagnoses: #1 malignant pleural effusion #2 CHF Below is the problem list and plan: #1 shortness of breath- currently on 1 L oxygen. Ultrasound-guided thoracentesis was done, which revealed pleural fluid suggestive of a mixed picture. Protein- pleural fluid/serum less than 0.5, LDH-pleural fluid/serum greater than 0.6. Findings suggestive of malignant pleural effusion. Await cytology results. As per preliminary cytology results-verbal conversation- it could likely be just reactive cells. Some vaculoar cells were seen, and so samples sent for tumor maker histology for Breast Ca. Repeat chest x-ray to assess resolution of pleural fluid. Herminio Gore MD advising. Last echo revealed LVEF 50-60%. Continue to monitor closely. May consider tap as an outpatient for symptomatic relief. #2 atrial fibrillation- the patient currently on apixaban, after being kept on IV heparin for the purpose of the procedure. Changed anticoagulation to Lovenox , at 1.5 mg per KG body weight dose which translates to 120 mg per day. Confirmed the dose with the pharmacy. To continue at the same dose. #3 anemia-acute drop in H&H was found on 08/04/2016. Guaiac stool-positive. Likely acute blood loss anemia. So far 2 PRBCs were transfused. Iron sulfate 325 by mouth daily. H&H pending 08/07/16. 4. mental health- mirtazapine has been added this p.m. #5 pain management-currently on Vicodin, Tylenol and morphine. The patient is currently not on any Decadron, as confirmed by the previous team. #5 DVT prophylaxis-Lovenox. Problem List: 1. Dyspnea on exertion 2. Anemia Pain Ratin Pain Location: none Pain Goal: Pain 4 or less Pain Plan: tylenol prn Tomorrow's Labs & Rationales: no labs necessary - pt to be discharged. Consulting Request: Consulting Specialty: Hematology/Oncology Consulting Physician: Dr. Eubanks Reason for Consult: Stage 4 breast cancer with bone metastasis JUSTIN OLIVARES MD 08/07/16 1135: Attending MD Review Statement Attending Statement Attending MD Statement: examined this patient, discuss w/resident/PA/VEST BUSHELER, agreed w/resident/PA/VEST BUSHELER, reviewed EMR data (avail) Attending Assessment/Plan: Patient doing well s/p thoracentesis, which revealed an exudative process suspicious for malignancy. Patient is stable for discharge to [facility], will continue Lovenox in anticipation of repeat thoracentesis and possible pleural catheter. Will follow up with pulmonary for further management, continue home medications.
[2016-08-07 07:09] VITALS: BP 100/62
--- NOTE | 2016-08-07 07:30 | PN- Oncology ---
Subjective Subjective: No worsening of chronic shortness of breath, patient denies chest pain or hemoptysis Review of Systems: 12 point review of systems otherwise noncontributory Objective Vital Signs and I&Os Vital Signs Date Time Temp Pulse Resp B/P Pulse O2 O2 Flow FiO2 Ox Delivery Rate 08/07 0709 97.8 62 20 100/62 98 Nasal 1.0L Cannula 08/07 0000 Nasal 1.0L Cannula 08/06 2235 97.6 68 20 98/60 93 Nasal Cannula 08/06 1600 Nasal 1.0L Cannula 08/06 1334 97.7 94 20 130/70 96 Nasal 1.0L Cannula 08/06 1057 80 140/75 08/06 0800 Nasal 1.0L Cannula Intake & Output 08/07 0800 08/07 0000 08/06 1600 08/06 0800 08/06 0000 08/05 1600 Intake Total 100 600 600 240 30 400 Output Total 800 Balance 100 600 600 240 30 -400 Intake, Oral 100 600 600 240 30 400 Number 1 0 Bowel Movements Output, Urine 800 Gen.: in NAD ENT: Sclera anicteric Chest: Normal respiratory effort, decreased breath sounds right base Cor: RRR, no extra sounds Abdomen: Soft, bowel sounds present, no tenderness, no rebound Extremities: Without clubbing, cyanosis, or asymmetric edema Neurology: Alert and oriented 3, Current Medications: Current Medications Sig/Dhraa Start time Last Medication Dose Route Stop Time Status Admin Acetaminophen 650 MG Q6P PRN 08/01 1700 AC PO Acetaminophen/ 1 TAB Q6P PRN 08/01 1700 AC Hydrocodone Bitart PO Apixaban 5 MG BID 08/03 2200 DC 08/05 PO 2155 Atorvastatin Calcium 10 MG 1700 08/02 1700 AC 08/06 PO 2117 Docusate Sodium 100 MG DAILY PRN 08/06 0930 AC PO Enoxaparin Sodium 120 MG DAILY 08/06 1104 AC 08/06 SC 1433 Furosemide 40 MG DAILY 08/02 1000 AC 08/06 PO 1056 Metoprolol Succinate 100 MG DAILY 08/02 1000 AC 08/06 PO 1057 Mirtazapine 7.5 MG AT BEDTIME 08/06 2200 AC 08/06 PO 2117 Morphine Sulfate 2 MG Q4P PRN 08/01 1700 AC IV Omeprazole 40 MG DAILY AC 08/02 0700 AC 08/07 PO 0657 Patient Medication 1 ED .STK-MED ONE 08/06 1400 DC Teaching ED 08/06 1401 Potassium Chloride 10 MEQ DAILY 08/02 1000 AC 08/06 PO 1056 Senna/Docusate Sodium 1 TAB BID PRN 08/06 0930 AC 08/06 PO 1056 Results Last 24 Hours of Lab Results: Lab see sheet Pleural [id number] Assessment/Plan Assessment/Recommendations: 1.Metastatic breast cancer-clinically stable Await cytology Decision for Pleurx catheter as an outpatient Follow-up my office 2. Anemia-stable hematocrit Continue iron Stools for occult blood pending Hopefully patient be discharged with follow-up my office
[2016-08-07 10:50] LABS: ABSOLUTE BASOPHIL COUNT 0.1 /CUMM (0.0-0.2); ABSOLUTE EOSINOPHIL COUNT 0.2 /CUMM (0.0-0.7); ABSOLUTE GRANULOCYTE CT 3.9 /CUMM (1.4-6.5); ABSOLUTE LYMPH COUNT 0.7 /CUMM (1.2-3.4); ABSOLUTE MONOCYTE COUNT 0.7 /CUMM (0.10-0.60); BASOPHIL % 1.4 % (0.0-2.0); EOSINOPHIL % 3.6 % (0-5); GRANULOCYTE % 70.3 % (42.2-75.2); HEMATOCRIT 35.1 % (37-47); MEAN CORPUSCULAR HGB 24.5 PG (27.0-31.0); MEAN CORPUSCULAR VOLUME 76.7 FL (81.0-99.0); MEAN PLATELET VOLUME 8.5 FL (7.4-10.4); PLATELET COUNT 213 /CUMM (130-400); RBC DISTRIBUTION WIDTH 18.9 % (11.5-14.5); RED BLOOD CELL CT 4.57 /CUMM (4.20-5.40); WHITE BLOOD CELL COUNT 5.6 /CUMM (4.8-10.8)
--- NOTE | 2016-08-07 11:23 | PN- Pulmonary ---
Subjective HPI/Critical Care Issues: Relatively stable Ms Kern was comfortable. She did not have any complaints. She was sleeping, when I walked into her room. Vitals were stable overnight, and she remained afebrile. Nurse notified that the pt had guiac positive stools. Review of Systems Constitutional: Reports: see HPI. Objective Current Medications: Current Medications Sig/Dhara Start time Last Medication Dose Route Stop Time Status Admin Acetaminophen 650 MG Q6P PRN 08/01 1700 AC PO Acetaminophen/ 1 TAB Q6P PRN 08/01 1700 AC Hydrocodone Bitart PO Atorvastatin Calcium 10 MG 1700 08/02 1700 AC 08/06 PO 2117 Docusate Sodium 100 MG DAILY PRN 08/06 0930 AC PO Enoxaparin Sodium 120 MG DAILY 08/06 1104 AC 08/07 SC 1026 Furosemide 40 MG DAILY 08/02 1000 AC 08/07 PO 1027 Metoprolol Succinate 100 MG DAILY 08/02 1000 AC 08/07 PO 1027 Mirtazapine 7.5 MG AT BEDTIME 08/06 2200 AC 08/06 PO 2117 Morphine Sulfate 2 MG Q4P PRN 08/01 1700 AC IV Omeprazole 40 MG DAILY AC 08/02 0700 AC 08/07 PO 0657 Patient Medication 1 ED .STK-MED ONE 08/06 1400 DC Teaching ED 08/06 1401 Potassium Chloride 10 MEQ DAILY 08/02 1000 AC 08/07 PO 1027 Senna/Docusate Sodium 1 TAB BID PRN 08/06 0930 AC 08/06 PO 1056 Vital Signs & I&O Last 24 Hrs of Vitals and I&O: Vital Signs Date Time Temp Pulse Resp B/P Pulse O2 O2 Flow FiO2 Ox Delivery Rate 08/07 1027 110/72 08/07 0709 97.8 62 20 100/62 98 Nasal 1.0L Cannula 08/07 0000 Nasal 1.0L Cannula 08/06 2235 97.6 68 20 98/60 93 Nasal Cannula 08/06 1600 Nasal 1.0L Cannula 08/06 1334 97.7 94 20 130/70 96 Nasal 1.0L Cannula Intake & Output 08/07 1600 08/07 0800 08/07 0000 Intake Total 100 600 Output Total Balance 100 600 Intake, Oral 100 600 Laboratory Tests 08/07 08/07 0950 0720 Chemistry Sodium (137 - 145 mmol/L) 140 Potassium (3.5 - 5.1 mmol/L) 4.3 Chloride (98 - 107 mmol/L) 98 Carbon Dioxide (22 - 30 mmol/L) 38 H Anion Gap (5 - 16) 4 L BUN (7 - 17 mg/dL) 19 H Creatinine (0.5 - 1.0 mg/dL) 0.7 Estimated GFR (>60 ml/min) > 60 BUN/Creatinine Ratio (7 - 25 %) 27.1 H Vitamin B12 (239 - 931 pg/mL) 303 TSH (0.270 - 4.200 uIU/mL) 0.935 Free T4 (0.78 - 2.44 ng/dL) 1.43 Hematology CBC w Diff NO MAN DIFF REQ WBC (4.8 - 10.8 /CUMM) 5.6 RBC (4.20 - 5.40 /CUMM) 4.57 Hgb (12.0 - 16.0 G/DL) 11.2 L Hct (37 - 47 %) 35.1 L MCV (81.0 - 99.0 FL) 76.7 L MCH (27.0 - 31.0 PG) 24.5 L RDW (11.5 - 14.5 %) 18.9 H Plt Count (130 - 400 /CUMM) 213 MPV (7.4 - 10.4 FL) 8.5 Gran % (42.2 - 75.2 %) 70.3 Lymphocytes % (20.5 - 51.1 %) 13.0 L Monocytes % (1.7 - 9.3 %) 11.7 H Eosinophils % (0 - 5 %) 3.6 Basophils % (0.0 - 2.0 %) 1.4 Absolute Granulocytes (1.4 - 6.5 /CUMM) 3.9 Absolute Lymphocytes (1.2 - 3.4 /CUMM) 0.7 L Absolute Monocytes (0.10 - 0.60 /CUMM) 0.7 H Absolute Eosinophils (0.0 - 0.7 /CUMM) 0.2 Absolute Basophils (0.0 - 0.2 /CUMM) 0.1 PUBS MCHC (33.0 - 37.0 G/DL) 32.0 L 08/06 0705 Chemistry Sodium (137 - 145 mmol/L) 144 Potassium (3.5 - 5.1 mmol/L) 3.9 Chloride (98 - 107 mmol/L) 98 Carbon Dioxide (22 - 30 mmol/L) 39 H Anion Gap (5 - 16) 7 BUN (7 - 17 mg/dL) 20 H Creatinine (0.5 - 1.0 mg/dL) 0.8 Estimated GFR (>60 ml/min) > 60 BUN/Creatinine Ratio (7 - 25 %) 25.0 Phosphorus (2.5 - 4.5 mg/dL) 3.7 Magnesium (1.6 - 2.3 mg/dL) 1.7 Hematology CBC w Diff NO MAN DIFF REQ WBC (4.8 - 10.8 /CUMM) 6.4 RBC (4.20 - 5.40 /CUMM) 4.59 Hgb (12.0 - 16.0 G/DL) 11.2 L Hct (37 - 47 %) 34.8 L MCV (81.0 - 99.0 FL) 75.9 L MCH (27.0 - 31.0 PG) 24.5 L RDW (11.5 - 14.5 %) 17.8 H Plt Count (130 - 400 /CUMM) 232 MPV (7.4 - 10.4 FL) 8.1 Gran % (42.2 - 75.2 %) 65.3 Lymphocytes % (20.5 - 51.1 %) 16.4 L Monocytes % (1.7 - 9.3 %) 13.5 H Eosinophils % (0 - 5 %) 4.1 Basophils % (0.0 - 2.0 %) 0.7 Absolute Granulocytes (1.4 - 6.5 /CUMM) 4.2 Absolute Lymphocytes (1.2 - 3.4 /CUMM) 1.0 L Absolute Monocytes (0.10 - 0.60 /CUMM) 0.9 H Absolute Eosinophils (0.0 - 0.7 /CUMM) 0.3 Absolute Basophils (0.0 - 0.2 /CUMM) 0 PUBS MCHC (33.0 - 37.0 G/DL) 32.2 L Impression/Plan Impression/Plan Impression/Plan: Physical Exam General Appearance: well developed/nourished, alert, awake, anxious, mild distress, obese Head: atraumatic, normal appearance Eyes: Bilateral: PERRL, EOMI, pale conjunctivae. Ears, Nose, Throat: normal pharynx, normal ENT inspection, moist mucus membranes Neck: normal inspection, supple, full range of motion, no midline tenderness Respiratory: chest non-tender, no respiratory distress, decreased breath sounds (right), rales (right) Cardiovascular: normal peripheral pulses, irregularly irregular Peripheral Pulses: 4+ carotid (R), 4+ carotid (L) Gastrointestinal: normal bowel sounds, soft, non-tender, no organomegaly Extremities: normal inspection, normal capillary refill, normal range of motion, no edema Neurologic/Psych: no motor/sensory deficits, awake, alert, oriented x 3, normal mood/affect, selling manager II-XII nml as tested Skin: intact, normal color Lymphatic: no anterior cervical esteban IMPRESSION This is a lady with the hypertension, hyperlipidemia, paroxysmal atrial fibrillation, previous history of pulmonary embolism with no new pulmonary embolism at this time (neg cta) who is on eloquis, 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 Her issues include * Pleural effusion in a lady with metastatic breast ca now s/p tap with ongoing dyspnea * Significant history of pulmonary embolism in the past now on eloquis with no active PE. Patient is on eloquis for atrial fibrillation as well as for venous thromboembolism rx and prophylaxix * Paroxymsmal atrial fibrillation, hypertension, ischemic heart on appropriate medications. Recently, her Lasix has been held with the no clinical evidence suggestive of acute pulmonary edema. However, her proBNP is elevated she may have a component of acute on chronic diastolic heart failure. * Breast cancer, with bone (spine aswell) on chemotherapy. * Hypertension, hyperlipidemia, previous GERD, stable. 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 Pt aware of this * Continue her proton pump inhibitor. * Continue her blood pressure medications. * Rpt cxr today, follow hct COnt oxygen if needed Can be dcd today with follow up soon We will follow closely
[2016-08-07] MEDS ORDERED: KLOR-CON 1010 ME1 PO (12:06)
[2016-08-07] MEDS ORDERED: FUROSEMIDE20 M1 PO (12:07)
[2016-08-07 13:47] VITALS: BP 120/80
[2016-08-07 21:57] VITALS: BP 124/64
--- NOTE | 2016-08-08 05:49 | PN- Housestaff ---
Subjective Follow-up For: - pleural effusion Subjective: Pt was comfortable. Stated that she slept well last night. No complaints. Reported good apetitite. Vitals were stable overnight, and she was afebrile. Had a long coversation yesteday, about the benefits of a rehabilitiation placement for a little while, before she can go back home. Her medications were changed yesterday, and she would follow up with Dr. Gore, Dr Eubanks. Review of Systems Constitutional: Reports: see HPI. Objective Last 24 Hrs of Vital Signs/I&O Vital Signs Date Time Temp Pulse Resp B/P Pulse O2 O2 Flow FiO2 Ox Delivery Rate 08/08 0000 Nasal 1.0L Cannula 08/07 2157 98.5 64 20 124/64 95 Nasal Cannula 08/07 1446 Nasal 1.0L Cannula 08/07 1347 97.2 58 18 120/80 96 Nasal 1.0L Cannula 08/07 1027 110/72 08/07 0800 Nasal 1.0L Cannula 08/07 0709 97.8 62 20 100/62 98 Nasal 1.0L Cannula Intake & Output 08/08 0800 08/08 0000 08/07 1600 Intake Total 800 500 Output Total 350 Balance 800 150 Intake, Oral 800 500 Output, Urine 350 Physical Exam General Appearance: No Acute Distress Current Medications: Current Medications Sig/Dhara Start time Last Medication Dose Route Stop Time Status Admin Acetaminophen 650 MG Q6P PRN 08/01 1700 AC PO Acetaminophen/ 1 TAB Q6P PRN 08/01 1700 AC Hydrocodone Bitart PO Atorvastatin Calcium 10 MG 1700 08/02 1700 AC 08/07 PO 2022 Docusate Sodium 100 MG DAILY PRN 08/06 0930 AC PO Enoxaparin Sodium 120 MG DAILY 08/06 1104 AC 08/07 SC 1026 Ferrous Sulfate 325 MG DAILY 08/07 1215 AC PO Furosemide 20 MG DAILY 08/08 1000 AC PO Furosemide 40 MG DAILY 08/02 1000 DC 08/07 PO 1027 Metoprolol Succinate 100 MG DAILY 08/02 1000 AC 08/07 PO 1027 Mirtazapine 7.5 MG AT BEDTIME 08/06 2200 AC 08/07 PO 2022 Morphine Sulfate 2 MG Q4P PRN 08/01 1700 AC IV Omeprazole 40 MG DAILY AC 08/02 0700 AC 08/07 PO 0657 Potassium Chloride 10 MEQ DAILY 08/02 1000 AC 08/07 PO 1027 Senna/Docusate Sodium 1 TAB BID PRN 08/06 0930 AC 08/06 PO 1056 Last 24 Hrs of Lab/Gavino Results Last 24 Hrs of Labs/Mics: Laboratory Tests 08/07/16 0950: CBC w Diff NO MAN DIFF REQ, RBC 4.57, MCV 76.7 L, MCH 24.5 L, RDW 18.9 H, MPV 8.5, Gran % 70.3, Lymphocytes % 13.0 L, Monocytes % 11.7 H, Eosinophils % 3.6, Basophils % 1.4, Absolute Granulocytes 3.9, Absolute Lymphocytes 0.7 L, Absolute Monocytes 0.7 H, Absolute Eosinophils 0.2, Absolute Basophils 0.1, PUBS MCHC 32.0 L 08/07/16 0720: Anion Gap 4 L, Estimated GFR > 60, BUN/Creatinine Ratio 27.1 H, Vitamin B12 303, TSH 0.935, Free T4 1.43 Assessment/Plan Assessment: Ms Kern is a 76 years old female with past medical history significant for Breast Ca (ER+; Her2 neg; Stage 4 w/ bony mets, s/p RCT s/p mastectomy 2010 on ER antagoinis-Fulvestrant), previous radiation therapy for vertebral body metastasis, right sided chronic pleural effusion, PE and paroxysmal Afib on Eliqus. She was being evaluated for shortness of breath. She was managed on telemetry floor and was transferred to [facility] on 08/06/2016. Differential diagnoses: #1 malignant pleural effusion #2 CHF Below is the problem list and plan: #1 shortness of breath- currently on 1 L oxygen. Ultrasound-guided thoracentesis was done. Findings suggestive of malignant pleural effusion. Await cytology results. May consider tap as an outpatient for symptomatic relief, if worsen. #2 atrial fibrillation- Currently on lovenox at 1.5mg/kg/day-once a day, if any further procedures are anticipated. To be discharged on the same dose. #3 anemia-likely acute blood loss anemia; guiac positive. Currently Hb stable. No hemodynamic instability. Pt doenst want to take ferrous sulfate. 4. mental health- Continue mirtazepine. Re-evalute in a few months. #5 pain management-currently on Vicodin, Tylenol and morphine. The patient is currently not on any Decadron, as confirmed by the previous team. #5 DVT prophylaxis-Lovenox. Problem List: 1. Dyspnea on exertion 2. Anemia 3. Pleural effusion 4. Atrial fibrillation with normal ventricular rate Pain Ratin Pain Location: none Pain Goal: Pain 4 or less Pain Plan: tylenol vicodin Tomorrow's Labs & Rationales: no labs necessary- pt to dc'ed Consulting Request: Consulting Specialty: Hematology/Oncology Consulting Physician: Dr. Eubanks Reason for Consult: Stage 4 breast cancer with bone metastasis Discharge Plan Discharge Disposition: STR/NH Stable for Discharge? Yes Anticipated Discharge (Day): today If Discharged Today/In 24 Hrs: enter ant[facility] discharge ord, W-10/discharge paper done, DC summary done, CMR done
[2016-08-08 06:23] VITALS: BP 126/70
[2016-08-08 08:03] LABS: ABSOLUTE BASOPHIL COUNT 0 /CUMM (0.0-0.2); ABSOLUTE EOSINOPHIL COUNT 0.2 /CUMM (0.0-0.7); ABSOLUTE GRANULOCYTE CT 3.6 /CUMM (1.4-6.5); ABSOLUTE MONOCYTE COUNT 0.9 /CUMM (0.10-0.60); BASOPHIL % 0.4 % (0.0-2.0); EOSINOPHIL % 4.3 % (0-5); GRANULOCYTE % 62.5 % (42.2-75.2); HEMATOCRIT 37.9 % (37-47); MEAN CORPUSCULAR HGB 24.5 PG (27.0-31.0); MEAN CORPUSCULAR HGB CONC 31.6 G/DL (33.0-37.0); MEAN CORPUSCULAR VOLUME 77.3 FL (81.0-99.0); MEAN PLATELET VOLUME 8.6 FL (7.4-10.4); PLATELET COUNT 210 /CUMM (130-400); RBC DISTRIBUTION WIDTH 19.2 % (11.5-14.5); RED BLOOD CELL CT 4.91 /CUMM (4.20-5.40); WHITE BLOOD CELL COUNT 5.8 /CUMM (4.8-10.8)
--- NOTE | 2016-08-08 10:34 | PN- Pulmonary ---
Subjective HPI/Critical Care Issues: Sleepy Afebrile vss chest mild crackles Objective Current Medications: Current Medications Sig/Dhara Start time Last Medication Dose Route Stop Time Status Admin Acetaminophen 650 MG Q6P PRN 08/01 1700 AC PO Acetaminophen/ 1 TAB Q6P PRN 08/01 1700 AC Hydrocodone Bitart PO Atorvastatin Calcium 10 MG 1700 08/02 1700 AC 08/07 PO 2022 Docusate Sodium 100 MG DAILY PRN 08/06 0930 AC PO Enoxaparin Sodium 120 MG DAILY 08/06 1104 AC 08/07 SC 1026 Ferrous Sulfate 325 MG DAILY 08/07 1215 AC PO Furosemide 20 MG DAILY 08/08 1000 AC PO Furosemide 40 MG DAILY 08/02 1000 DC 08/07 PO 1027 Metoprolol Succinate 100 MG DAILY 08/02 1000 AC 08/07 PO 1027 Mirtazapine 7.5 MG AT BEDTIME 08/06 2200 AC 08/07 PO 2022 Morphine Sulfate 2 MG Q4P PRN 08/01 1700 AC IV Omeprazole 40 MG DAILY AC 08/02 0700 AC 08/08 PO 0625 Potassium Chloride 10 MEQ DAILY 08/02 1000 AC 08/07 PO 1027 Senna/Docusate Sodium 1 TAB BID PRN 08/06 0930 AC 08/06 PO 1056 Vital Signs & I&O Last 24 Hrs of Vitals and I&O: Vital Signs Date Time Temp Pulse Resp B/P Pulse O2 O2 Flow FiO2 Ox Delivery Rate 08/08 0623 98.2 67 18 126/70 98 Nasal Cannula 08/08 0000 Nasal 1.0L Cannula 08/07 2157 98.5 64 20 124/64 95 Nasal Cannula 08/07 1446 Nasal 1.0L Cannula 08/07 1347 97.2 58 18 120/80 96 Nasal 1.0L Cannula Intake & Output 08/08 1600 08/08 0800 08/08 0000 Intake Total 200 800 Output Total Balance 200 800 Intake, Oral 200 800 Impression/Plan Impression/Plan Impression/Plan: Physical Exam General Appearance: well developed/nourished, alert, awake, anxious, mild distress, obese Head: atraumatic, normal appearance Eyes: Bilateral: PERRL, EOMI, pale conjunctivae. Ears, Nose, Throat: normal pharynx, normal ENT inspection, moist mucus membranes Neck: normal inspection, supple, full range of motion, no midline tenderness Respiratory: chest non-tender, no respiratory distress, decreased breath sounds (right), rales (right) Cardiovascular: normal peripheral pulses, irregularly irregular Peripheral Pulses: 4+ carotid (R), 4+ carotid (L) Gastrointestinal: normal bowel sounds, soft, non-tender, no organomegaly Extremities: normal inspection, normal capillary refill, normal range of motion, no edema Neurologic/Psych: no motor/sensory deficits, awake, alert, oriented x 3, normal mood/affect, 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 Skin: intact, normal color Lymphatic: no anterior cervical esteban IMPRESSION This is a lady with the hypertension, hyperlipidemia, paroxysmal atrial fibrillation, previous history of pulmonary embolism with no new pulmonary embolism at this time (neg cta) who is on eloquis, 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 Her issues include * Pleural effusion in a lady with metastatic breast ca now s/p tap with ongoing dyspnea, Path pending, Appears chronic but malignant effusion is a possibility * Significant history of pulmonary embolism in the past now on eloquis with no active PE. Patient is on eloquis for atrial fibrillation as well as for venous thromboembolism rx and prophylaxix * Paroxymsmal atrial fibrillation, hypertension, ischemic heart on appropriate medications. Recently, her Lasix has been held with the no clinical evidence suggestive of acute pulmonary edema. However, her proBNP is elevated she may have a component of acute on chronic diastolic heart failure. * Breast cancer, with bone (spine aswell) on chemotherapy. * Hypertension, hyperlipidemia, previous GERD, stable. 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 Will discuss with dante and Dr Martinez later today * PT can be dcd on lovenox and can follow up with me in the next few days and pleurx can be arranged if needed * Gentle diuresis, reduce lasix to 20 qd with 20 meq of kcl daily as she is retaining bicarb in her serum * Keep the head of bed elevated as she has a pretty large hiatal hernia. Pt aware of this * Continue her proton pump inhibitor. * Continue her blood pressure medications. COnt oxygen if needed Can be dcd today with follow up soon We will follow closely
[2016-08-08 11:46] VITALS: BP 126/82
== END 2016-08-08 14:12 | DRG 597 ==
LOC: ENRESERVTM → ENRESERVDT → ERH 12:35 → ERHI 14:15 → 1NO 14:15 → 2NA 14:15 → 1NO 19:21 → 2NA 08-05 20:30
PROVIDERS: Emergency Medicine; Internal Medicine; Internal Medicine Endocrinology, Diabetes & Metabolism; Specialist; Student in an Organized Health Care Education/Training Program; ADMIT Internal Medicine
PROC: 0W993ZX Drainage of Right Pleural Cavity, Percutaneous Approach, Diagnostic (ICD-10-PCS; principal; 2016-08-03)
PROC: 30233N1 Transfusion of Nonautologous Red Blood Cells into Peripheral Vein, Percutaneous Approach (ICD-10-PCS; 2016-08-04)
DX: C50.911 Malignant neoplasm of unspecified site of right female breast (principal); I50.33 Acute on chronic diastolic (congestive) heart failure; J90 Pleural effusion, not elsewhere classified; I11.0 Hypertensive heart disease with heart failure; C78.00 Secondary malignant neoplasm of unspecified lung; C79.51 Secondary malignant neoplasm of bone; D62 Acute posthemorrhagic anemia; Z17.0 Estrogen receptor positive status [ER+]; E04.9 Nontoxic goiter, unspecified; K44.9 Diaphragmatic hernia without obstruction or gangrene; I48.0 Paroxysmal atrial fibrillation; E78.5 Hyperlipidemia, unspecified; K21.9 Gastro-esophageal reflux disease without esophagitis; F32.9 Major depressive disorder, single episode, unspecified
CPT/HCPCS: 1NSP; 2NASP; 87075; 36415; 81001; 82436; 86920; 87804; 87804-59; 88305; 93005; 93010; 97110-GO; 97116-GO; 97162-GP; 97530-GO; 99232; J1644; J1650; J1940; J2405; J3490; J7042; J7508; P9016